=== PATIENT | female | born 1985 | race Caucasian/White ===

== ENCOUNTER 2017-07-20 17:12 | Emergency (ER) | payer OTHER ==
[2017-07-20 17:26] VITALS: BP 131/59; PULSE 90; TEMP 98.4; BMI 33.8
--- NOTE | 2017-07-20 18:11 | PDOC ---
History of Present Illness - General History Source: Patient Exam Limitations: No Limitations - History of Present Illness Initial Comments: 07/20/17 18:29 The patient is a 32-year-old female, , with no significant past medical history, who presents to the ED with lower abdominal pain today. The patient is unsure of her exact last menstrual period but she states that her last normal period was in March. The patient is now experiencing crampy abdominal pain and believes that she may be . Her next appointment with her BASIC ACOUSTIC ANALYST is on July 24. She denies taking any medications. She states that her last was normal. She denies any nausea, vomiting, or diarrhea. She denies any vaginal bleeding or fluid loss. She denies taking any medications at this time. <Rita Silva - Last Filed: 07/20/17 18:29> - General History Source: Patient Exam Limitations: No Limitations - History of Present Illness Travel History: No <Dianna Zambrano - Last Filed: 07/20/17 20:40> - General Chief Complaint: Pain, Acute Stated Complaint: VAGINAL PAIN , (12 WEEKS ) Past History <Rita Silva - Last Filed: 07/20/17 18:29> - Past Medical History Asthma: No Cancer: No Cardiac Disorders: No Diabetes: No HTN: No Seizures: No Thyroid Disease: No - Psycho/Social/Smoking Cessation Hx Anxiety: No Suicidal Ideation: No Smoking Status: No Smoking History: Never smoked Number of Cigarettes Smoked Daily: 0 Hx Alcohol Use: No Drug/Substance Use Hx: No Hx Substance Use Treatment: No <Dianna Zambrano - Last Filed: 07/20/17 20:40> - Past Medical History Allergies/Adverse Reactions: Allergies Allergy/AdvReac Type Severity Reaction Status Date / Time No Known Allergies Allergy Verified 07/20/17 17:22 Home Medications: Ambulatory Orders Nitrofurantoin Monohyd/M-Cryst [Macrobid -] 100 mg PO BID #14 capsule 07/20/17 Vit No.129/Iron/FA [ One Daily Tablet] 1 each PO DAILY #90 tablet 07/20/17 Review of Systems - Review of Systems Able to Perform ROS?: Yes Comments:: 07/20/17 18:30 GENERAL/CONSTITUTIONAL: No fever or chills. No weakness. HEAD, EYES, EARS, NOSE AND THROAT: No change in vision. No ear pain or discharge. No sore throat. CARDIOVASCULAR: No chest pain or shortness of breath. RESPIRATORY: No cough, wheezing, or hemoptysis. GASTROINTESTINAL: (+)Abdominal pain. No nausea, vomiting, diarrhea or constipation. GENITOURINARY: No dysuria, frequency, or change in urination. MUSCULOSKELETAL: No joint or muscle swelling or pain. No neck or back pain. SKIN: No rash NEUROLOGIC: No headache, vertigo, loss of consciousness, or change in strength/ sensation. ENDOCRINE: No increased thirst. No abnormal weight change. HEMATOLOGIC/LYMPHATIC: No anemia, easy bleeding, or history of blood clots. ALLERGIC/IMMUNOLOGIC: No hives or skin allergy. <Rita Silva - Last Filed: 07/20/17 18:29> *Physical Exam - Vital Signs Last Vital Signs Temp Pulse Resp BP Pulse Ox 98.4 F 90 19 131/59 100 07/20/17 17:22 07/20/17 17:22 07/20/17 17:22 07/20/17 17:22 07/20/17 17:22 - Physical Exam Comments: 07/20/17 18:30 GENERAL: Awake, alert, and fully oriented, in no acute distress HEAD: No signs of trauma EYES: PERRLA, EOMI, sclera anicteric, conjunctiva clear ENT: Auricles normal inspection, hearing grossly normal, nares patent, oropharynx clear without exudates. Moist mucosa NECK: Normal ROM, supple, no lymphadenopathy, JVD, or masses LUNGS: Breath sounds equal, clear to auscultation bilaterally. No wheezes, and no crackles HEART: Regular rate and rhythm, normal S1 and S2, no murmurs, rubs or gallops ABDOMEN: Soft, nontender, normoactive bowel sounds. No guarding, no rebound. No masses EXTREMITIES: Normal range of motion, no edema. No clubbing or cyanosis. No cords, erythema, or tenderness NEUROLOGICAL: Cranial nerves II through XII grossly intact. SKIN: Warm, Dry, normal turgor, no rashes or lesions noted <Rita Silva - Last Filed: 07/20/17 18:29> - Vital Signs Last Vital Signs Temp Pulse Resp BP Pulse Ox 98.4 F 90 19 131/59 100 07/20/17 17:22 07/20/17 17:22 07/20/17 17:22 07/20/17 17:22 07/20/17 17:22 <Dianna Zambrano - Last Filed: 07/20/17 20:40> ED Treatment Course - LABORATORY CBC & Chemistry Diagram: 07/20/17 18:00 07/20/17 18:00 - ADDITIONAL ORDERS Additional order review: 07/20/17 18:00 RBC 4.51 D MCV 82.1 MCHC 34.4 RDW 14.3 D MPV 8.1 D Neutrophils % 72.3 Lymphocytes % 19.8 D Monocytes % 6.2 Eosinophils % 1.2 D Basophils % 0.5 <Rita Silva - Last Filed: 07/20/17 18:29> - LABORATORY CBC & Chemistry Diagram: 07/20/17 18:00 07/20/17 18:00 <Dianna Zambrano - Last Filed: 07/20/17 20:40> Medical Decision Making - Medical Decision Making 07/20/17 18:13 32 yo currently 8 - 10 weeks unsure of exact LMP. last menstrual that was normal in march some time, here with lower abdominal cramping pain. no urinary complaints. no vaginal bleeding. no other complaints. has appt with OB/ HUMAN CAPITAL ANALYST at [facility] [place] on 24 of july . on exam abd soft NT. plan bedside us eval fetus , age estimate and well being check. r/o ectopic. labs ua. focused ED ultrasound Transabdominal OB, indication abd pain finding: uterus scanned in two planes. pole noted, heart rate 161 bpm , movement noted. Faison Rump measurement consistent with 11 weeks plus one day impression: Live 11 weeks 1 day, IUP normal FHR. <Dianna Zambrano - Last Filed: 07/20/17 20:40> *DC/Admit/Observation/Transfer - Attestations Scribe Attestion: 07/20/17 18:31 Documentation prepared by Rita Silva, acting as medical claims representative for Dianna Zambrano MD. <Rita Silva - Last Filed: 07/20/17 18:29> - Discharge Dispostion Admit: No <Dianna Zambrano - Last Filed: 07/20/17 20:40> Diagnosis at time of Disposition: - Prescriptions Prescriptions: Nitrofurantoin Monohyd/M-Cryst [Macrobid -] 100 mg PO BID #14 capsule Vit No.129/Iron/FA [ One Daily Tablet] 1 each PO DAILY #90 tablet - Patient Instructions Printed Discharge Instructions: Medications and , Managing Symptoms of , Urinary Tract Infection Additional Instructions: you should take a vitamin daily. follow up with the ob/gynecology clinic as scheduled. return for any problems or concerns. yo u have a mild urine infection. you should take macrobid antiobiotics 100 mg twice daily x 7 days. necesitas tome adilson vitamina con folate cada jalyn. adilson receta por las vitaminas esta en la farmacia. devolvere por neela de la vagina, doler o otras preocupadas. seguir con le oz en la clinica en junosto 29. tu Teines adilson infection en la orina. necesita un antiobiotico " macrobid" 100 mg dos veces cada jalyn por 7 aguayo. Print Language: VENEZUELAN
[2017-07-20 18:18] LABS: BASOPHIL 0.5 % (0-2.0); EOSINOPHIL 1.2 % (0-4.5); MCH 28.2 pg (25.7-33.7); MCHC 34.4 g/dl (32.0-36.0); MEAN CELL VOLUME 82.1 fl (80-96); MEAN PLT VOLUME 8.1 fl (7.5-11.1); NEUTROPHILS 72.3 % (42.8-82.8); PLATELET COUNT 251 K/MM3 (134-434); RDW 14.3 % (11.6-15.6); WHITE BLOOD COUNT 11.3 K/mm3 (4.0-10.0)
[2017-07-20 18:25] LABS: URINE APPEARANCE CLEAR; URINE BILIRUBIN NEGATIVE (NEGATIVE); URINE BLOOD NEGATIVE (NEGATIVE); URINE COLOR LTYELLOW; URINE GLUCOSE (UA) NEGATIVE (NEGATIVE); URINE KETONE NEGATIVE (NEGATIVE); URINE NITRITE NEGATIVE (NEGATIVE); URINE PROTEIN NEGATIVE (NEGATIVE); URINE UROBILINOGEN NEGATIVE mg/dL (0.2-1.0)
[2017-07-20 18:34] LABS: URINE LEUK ESTERASE 1+ (NEGATIVE)
[2017-07-20 18:44] LABS: ALBUMIN 3.8 g/dl (3.4-5.0); ANION GAP 11 (8-16); CALCIUM 8.9 mg/dL (8.5-10.1); CO2 24 mmol/L (21-32); CREATININE 0.6 mg/dL (0.55-1.02); GLUCOSE,RANDOM 91 mg/dL (74-106); SGOT/AST 15 U/L (15-37); SGPT/ALT 22 U/L (12-78)
[2017-07-20 18:46] LABS: ALK PHOS 72 U/L (45-117); BILIRUBIN,TOTAL 0.5 mg/dL (0.2-1.0)
[2017-07-20] MEDS ORDERED: NITROFURANTOIN MACROCRYSTAL 50 MG CAPSULE (FP) ONE (20:39)
[2017-07-20] MEDS ORDERED: NITROFURANTOIN MACROCRYSTAL 50 MG CAPSULE (FP) PO SCH (20:45)
== END 2017-07-20 20:51 | disposition home or self-care (01) ==
LOC: JER 17:12
DX: O26.891 Other specified pregnancy related conditions, first trimester (principal); R10.2 Pelvic and perineal pain; Z3A.11 11 weeks gestation of pregnancy
CPT/HCPCS: 36415; 80053; 81003; 81015; 84702; 85025; 86850; 86900; 86901; 87086; 99283-25

== ENCOUNTER 2017-08-27 23:30 | Emergency (ER) | payer OTHER ==
[2017-08-28 00:11] VITALS: BP 103/53; PULSE 80; TEMP 97.4; BMI 31.7
[2017-08-28] MEDS ORDERED: diphenhydrAMINE HCL 25 MG CAPSULE (FP) PO ONE ×2 (00:15→00:22)
--- NOTE | 2017-08-28 00:16 | PDOC ---
History of Present Illness - General Chief Complaint: Allergic Reaction Stated Complaint: RASH/20 WKS Time Seen by Provider: 08/27/17 23:57 History Source: Patient - History of Present Illness Initial Comments: 08/28/17 00:16 32 year old 20 week female with pruritic rash to body x 3 days. denies fever, NVD, abdominal pain, vaginal bleeding Past History - Past Medical History Allergies/Adverse Reactions: Allergies Allergy/AdvReac Type Severity Reaction Status Date / Time No Known Allergies Allergy Verified 08/28/17 00:10 Home Medications: Ambulatory Orders Nitrofurantoin Monohyd/M-Cryst [Macrobid -] 100 mg PO BID #14 capsule 07/20/17 Vit No.129/Iron/FA [ One Daily Tablet] 1 each PO DAILY #90 tablet 07/20/17 Asthma: No Cancer: No Cardiac Disorders: No Diabetes: No HTN: No Seizures: No Thyroid Disease: No - Reproductive History (#): 2 Para: 1 - Suicide/Smoking/Psychosocial Hx Smoking Status: No Smoking History: Never smoked Have you smoked in the past 12 months: No Number of Cigarettes Smoked Daily: 0 Information on smoking cessation initiated: No Hx Alcohol Use: No Drug/Substance Use Hx: No Hx Substance Use Treatment: No Review of Systems - Review of Systems Able to Perform ROS?: Yes Is the patient limited Greenlandic proficient: No Integumentary: Yes: Pruritus, Rash *Physical Exam - Vital Signs Last Vital Signs Temp Pulse Resp BP Pulse Ox 97.4 F L 80 14 103/53 99 08/28/17 00:10 08/28/17 00:10 08/28/17 00:10 08/28/17 00:10 08/28/17 00:10 - Physical Exam General Appearance: Yes: Appropriately Dressed Extremity: positive: Normal Capillary Refill Integumentary: positive: Petechiae, Rash, Other (petechial rash to b/l breast and erythema. excoriated areas to hand axilla, groin b/l lower extremities) Neurologic: positive: Fully Oriented, Alert, Normal Mood/Affect ED Treatment Course - LABORATORY CBC & Chemistry Diagram: 08/28/17 00:18 Medical Decision Making - Medical Decision Making Pruritic rash P: lfts wnl PTT/PT inr: wnl/ outpatient derm followup. benadryl prn *DC/Admit/Observation/Transfer Diagnosis at time of Disposition: Pruritic rash - Discharge Dispostion Disposition: HOME - Referrals Referrals: Beatriz Mays MD [Staff Physician] - - Patient Instructions Printed Discharge Instructions: Allergen Skin Testing Additional Instructions: take benadryl every 8 hours as needed for itch follow up with dermatology as soon as possible.
[2017-08-28 00:40] LABS: INR 1.04 (0.82-1.09); PROTHROMBIN TIME (PATIENT) 11.4 SEC (9.98-11.88)
[2017-08-28 00:43] LABS: ACTIVATED PTT 28.9 SECONDS (26.9-34.4)
[2017-08-28 00:48] LABS: ALBUMIN 3.1 g/dl (3.4-5.0); ANION GAP 10 (8-16); BILIRUBIN,TOTAL 0.2 mg/dL (0.2-1.0); CALCIUM 8.6 mg/dL (8.5-10.1); CO2 23 mmol/L (21-32); CREATININE 0.5 mg/dL (0.55-1.02); GLUCOSE,RANDOM 99 mg/dL (74-106); SGOT/AST 14 U/L (15-37); SGPT/ALT 23 U/L (12-78); TOT PROT 6.2 g/dl (6.4-8.2)
[2017-08-28 00:49] LABS: ALK PHOS 73 U/L (45-117)
== END 2017-08-28 02:05 | disposition home or self-care (01) ==
LOC: JER 23:30
DX: O26.892 Other specified pregnancy related conditions, second trimester (principal); R21 Rash and other nonspecific skin eruption; Z3A.20 20 weeks gestation of pregnancy
CPT/HCPCS: 36415; 80053; 85610; 85730; 99281-25

== ENCOUNTER 2018-01-10 11:40 | Inpatient (IN) | payer OTHER ==
[2018-01-10 12:59] LABS: BASO % 0.3 % (0-2.0); EOS % 0.7 % (0-4.5); HEMOGLOBIN 13.1 GM/dL (10.7-15.3); MCH 24.8 pg (25.7-33.7); MCHC 31.8 g/dl (32.0-36.0); MEAN CELL VOLUME 77.8 fl (80-96); MEAN PLT VOLUME 9.6 fl (7.5-11.1); MONO % 4.5 % (3.8-10.2); NEUT % 78.5 % (42.8-82.8); PLATELET COUNT 242 K/MM3 (134-434); RBC 5.28 M/mm3 (3.60-5.2); RDW 15.7 % (11.6-15.6)
[2018-01-10 13:16] LABS: INR 0.96 (0.82-1.09); PROTHROMBIN TIME (PATIENT) 10.8 SEC (9.98-11.88)
[2018-01-10 13:18] LABS: ACTIVATED PTT 29.4 SECONDS (26.9-34.4)
[2018-01-10 13:22] LABS: ANION GAP 11 (8-16); BLOOD UREA NITROGEN 11 mg/dL (7-18); CALCIUM 8.7 mg/dL (8.5-10.1); CHLORIDE 108 mmol/L (98-107); CO2 20 mmol/L (21-32); CREATININE 0.6 mg/dL (0.55-1.02); GLUCOSE,RANDOM 104 mg/dL (74-106); POTASSIUM 4.1 mmol/L (3.5-5.1); SODIUM 139 mmol/L (136-145)
[2018-01-10 13:24] VITALS: BMI 33.7
[2018-01-10] MEDS: LACTATED RINGERS SOLUTION 1,000 ML IV SCH ×2 (13:45→18:13)
--- NOTE | 2018-01-10 15:28 | HP ---
Past Medical History - Primary Care Physician PCP:: Lokesh Delarosa - Admission Chief Complaint: 37 week , GDM, rom, labor History of Present Illness: 32 yo f - Past Medical History ...: 2 ...Para: 1 ...Term: 1 ...: 0 ...Spon : 0 ...Induced : 0 ...Multiple Gestation: 0 ...LMP: 04/29/17 ... Weeks Gestation by Dates: 36.4 ...EDC by Dates: 02/03/18 ...EDC by Sono: 01/31/18 - Smoking History Smoking history: Never smoked Have you smoked in the past 12 months: No Aproximately how many cigarettes per day: 0 - Alcohol/Substance Use Hx Alcohol Use: No Home Medications - Allergies Allergies/Adverse Reactions: Allergies Allergy/AdvReac Type Severity Reaction Status Date / Time No Known Allergies Allergy Verified 01/10/18 12:18 - Home Medications Home Medications: Ambulatory Orders Glyburide/Metformin HCl [Glyburide-Metformin 2.5-500 mg] 2.5 each PO BID Physical Exam - Maternity Vital Signs: Vital Signs Temperature 98.9 F 01/10/18 14:00 Pulse Rate 76 01/10/18 14:00 Respiratory Rate 18 01/10/18 14:00 Blood Pressure 105/57 01/10/18 14:00 O2 Sat by Pulse Oximetry (%) - Labs Lab Results: CBC, BMP 01/10/18 12:15 01/10/18 12:15
--- NOTE | 2018-01-10 22:19 | PN ---
Progress Note (short form) - Note Progress Note: cx 5 cm 80, vx -1 mr, fhr cat 1, irregular contraction, advised pitocin stimulation
[2018-01-10] MEDS ORDERED: OXYTOCIN 15 UNITS/ LR 250 ML 15 UNIT/250 ML INFUS.BAG IVPB SCH (22:30)
[2018-01-10] MEDS ORDERED: OXYTOCIN 30 UNITS in 0.9% NS 30 UNIT/500 ML INFUS.BAG IVPB SCH (22:30)
[2018-01-10] MEDS ORDERED: OXYTOCIN 20 UNITS in 0.9% NS 20 UNIT/1,000 ML INFUS.BAG IV ONE (22:37)
[2018-01-11] MEDS: LACTATED RINGERS SOLUTION 1,000 ML IV SCH ×2 (03:50→17:07)
[2018-01-11] MEDS ORDERED: AMPICILLIN - 2 GM in SODIUM CHLORIDE 100 ML IVPB ONE ×2 (04:30→05:30)
[2018-01-11] MEDS ORDERED: AMPICILLIN SODIUM 2 GM VIAL ONE (05:21)
[2018-01-11] MEDS ORDERED: BUTORPHANOL TARTRATE 1 MG/ML VIAL IVPUSH ONE (05:40)
[2018-01-11] MEDS ORDERED: PROMETHAZINE HCL 25 MG/1 ML VIAL IVPUSH ONE (05:40)
[2018-01-11] MEDS ORDERED: PROMETHAZINE HCL 25 MG/1 ML VIAL ONE (05:42)
[2018-01-11] MEDS ORDERED: BUTORPHANOL TARTRATE 1 MG/ML VIAL ONE ×2 (05:42)
[2018-01-11] MEDS ORDERED: LIDOCAINE HCL 1% PRESERVATIVE FREE - 30ML VIAL ONE (06:23)
[2018-01-11] MEDS ORDERED: OXYTOCIN 20 UNITS in 0.9% NS 20 UNIT/1,000 ML INFUS.BAG IV ONE ×2 (06:23→07:04)
[2018-01-11] MEDS: D5W-LR W/ 20 UNITS OXYTOCIN 20 UNIT/1,000 ML INFUS.BAG IV SCH ×2 (06:35→17:07)
[2018-01-11] MEDS ORDERED: BISACODYL 10 MG SUPP.RECT RC PRN (06:41)
[2018-01-11] MEDS ORDERED: WITCH HAZEL 50% (TUCKS) 40 PAD/JAR PAD TP PRN (06:41)
[2018-01-11] MEDS ORDERED: METHYLERGONOVINE MALEATE 0.2 MG/1 ML AMP IM PRN (06:41)
[2018-01-11] MEDS ORDERED: BENZOCAINE 28 GM HEMORRHOIDAL OINTMENT TP PRN (06:41)
[2018-01-11] MEDS ORDERED: BENZOCAINE 20% 57 GM BOTTLE TP PRN (06:41)
[2018-01-11] MEDS: FERROUS SO4 325 MG TABLET (FP) PO SCH ×2 (09:00→17:07)
[2018-01-11] MEDS ORDERED: OXYTOCIN 20 UNITS in 0.9% NS 20 UNIT/1,000 ML INFUS.BAG IV SCH (09:00)
[2018-01-11] MEDS ORDERED: IBUPROFEN 600 MG TABLET (FP) PO ONE (09:26)
[2018-01-11] MEDS: IBUPROFEN 600 MG TABLET (FP) PO PRN ×2 (09:30→23:48)
[2018-01-11] MEDS ORDERED: AMPICILLIN - 1 GM in SODIUM CHLORIDE 100 ML IVPB SCH (09:30)
[2018-01-11] MEDS: PRENATAL VITAMINS W/ FOLIC ACID TABLET (FP) PO SCH (09:40)
[2018-01-11] MEDS: ACETAMINOPHEN 325 MG TABLET (FP) PO PRN (23:49)
[2018-01-12 07:10] LABS: BASO % 0.4 % (0-2.0); EOS % 1.2 % (0-4.5); HEMATOCRIT 34.5 % (32.4-45.2); HEMOGLOBIN 11.1 GM/dL (10.7-15.3); LYMPH % 24.4 % (8-40); MCH 25.6 pg (25.7-33.7); MCHC 32.2 g/dl (32.0-36.0); MEAN CELL VOLUME 79.5 fl (80-96); MEAN PLT VOLUME 9.3 fl (7.5-11.1); MONO % 6.6 % (3.8-10.2); NEUT % 67.4 % (42.8-82.8); PLATELET COUNT 215 K/MM3 (134-434); RBC 4.34 M/mm3 (3.60-5.2); WHITE BLOOD COUNT 12.5 K/mm3 (4.0-10.0)
--- NOTE | 2018-01-12 07:17 | PN ---
Post Progress Note - Subjective Subjective: 32 yo Para 2 status post vaginal delivery, seen and evaluated. Doing well. Post Day: 1 Type of Delivery: Vital Signs: Vital Signs Temperature 97.6 F 01/12/18 05:35 Pulse Rate 68 01/12/18 05:35 Respiratory Rate 20 01/12/18 05:35 Blood Pressure 106/71 01/12/18 05:35 O2 Sat by Pulse Oximetry (%) Breast Exam: Yes: Soft Uterus: Yes: Fundus Firm Abdomen/GI: Yes: Abdomen soft, Tolerating PO Lochia: Yes: Rubra Lochia, amount: Small Extremities: Yes: Calves non-tender Activity: Ambulating - Labs Labs: CBC WBC 12.0 K/mm3 (4.0-10.0) H 01/10/18 12:15 RBC 5.28 M/mm3 (3.60-5.2) H 01/10/18 12:15 Hgb 13.1 GM/dL (10.7-15.3) 01/10/18 12:15 Hct 41.0 % (32.4-45.2) 01/10/18 12:15 MCV 77.8 fl (80-96) L 01/10/18 12:15 MCH 24.8 pg (25.7-33.7) L 01/10/18 12:15 MCHC 31.8 g/dl (32.0-36.0) L 01/10/18 12:15 RDW 15.7 % (11.6-15.6) H 01/10/18 12:15 Plt Count 242 K/MM3 (134-434) 01/10/18 12:15 MPV 9.6 fl (7.5-11.1) D 01/10/18 12:15 Neutrophils % 78.5 % (42.8-82.8) 01/10/18 12:15 Lymphocytes % 16.0 % (8-40) 01/10/18 12:15 Monocytes % 4.5 % (3.8-10.2) 01/10/18 12:15 Eosinophils % 0.7 % (0-4.5) 01/10/18 12:15 Basophils % 0.3 % (0-2.0) 01/10/18 12:15 Assessment/Plan Status post vaginal delivery Stable Continue routine care
[2018-01-12] MEDS: FERROUS SO4 325 MG TABLET (FP) PO SCH ×2 (08:19→17:12)
[2018-01-12] MEDS: PRENATAL VITAMINS W/ FOLIC ACID TABLET (FP) PO SCH (09:52)
[2018-01-12] MEDS: ACETAMINOPHEN 325 MG TABLET (FP) PO PRN (15:18)
[2018-01-12] MEDS: IBUPROFEN 600 MG TABLET (FP) PO PRN (15:19)
[2018-01-12] MEDS ORDERED: SENNOSIDES/DOCUSATE COMBO (SENNA PLUS) TABLET (UD) PO PRN (22:00)
[2018-01-13] MEDS: FERROUS SO4 325 MG TABLET (FP) PO SCH (07:58)
[2018-01-13] MEDS: IBUPROFEN 600 MG TABLET (FP) PO PRN (07:58)
[2018-01-13 08:42] VITALS: BP 118/55; PULSE 83; TEMP 98.9
--- NOTE | 2018-01-13 09:05 | DS ---
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 Vital Signs: Vital Signs Temperature 98.9 F 01/13/18 08:40 Pulse Rate 83 01/13/18 08:40 Respiratory Rate 20 01/13/18 08:40 Blood Pressure 118/55 01/13/18 08:40 O2 Sat by Pulse Oximetry (%) Constitutional: Yes: Well Nourished Eyes: Yes: Conjunctiva Clear HENT: Yes: Atraumatic Neck: Yes: Supple Cardiovascular: Yes: Regular Rate and Rhythm Respiratory: Yes: Regular Gastrointestinal: Yes: Normal Bowel Sounds Pelvis: Yes: WNL External Genitalia: Yes: Normal Vaginal Exam: Yes: Normal Uterus: Yes: Firm ....Post : Yes: Uterus firm, Moderate lochia serosa Breast(s): Yes: WNL Musculoskeletal: Yes: WNL Extremities: Yes: WNL Neurological: Yes: Alert, Oriented ...Motor Strength: WNL Psychiatric: Yes: Alert, Oriented Labs: CBC, BMP 01/12/18 06:07 01/10/18 12:15 Delivery - Delivery Type of Anesthesia: None Episiotomy/Laceration: None EBL (cc): 400 Delivery, Single - Stages of Labor Date 1st Stage Initiatied: 01/10/18 Time 1st Stage Initiated: 09:00 Date 2nd Stage Initiated: 01/11/18 Time 2nd Stage Initiated: 06:25 Date of Delivery: 01/11/18 Time of Delivery: 06:31 Time Placenta Delivered: 06:35 - 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 for appointment. [phone] Disposition: HOME - Home Medications Comprehensive Discharge Medication List: Ambulatory Orders Glyburide/Metformin HCl [Glyburide-Metformin 2.5-500 mg] 2.5 each PO BID
[2018-01-13] MEDS: PRENATAL VITAMINS W/ FOLIC ACID TABLET (FP) PO SCH (09:27)
== END 2018-01-13 12:50 | disposition home or self-care (01) | DRG 560 ==
LOC: JLDR 11:40 → J3W 01-11 15:12
PROVIDERS: ADMIT Obstetrics & Gynecology; ATTEND Obstetrics & Gynecology
PROC: 10E0XZZ Delivery of Products of Conception, External Approach (ICD-10-PCS; principal; 2018-01-11)
DX: O24.429 Gestational diabetes mellitus in childbirth, unspecified control (principal); Z3A.37 37 weeks gestation of pregnancy; Z37.0 Single live birth
CPT/HCPCS: 36415; 59409; 80048; 82962; 85025; 85610; 85730; 86593; 86850; 86900; 86901

== ENCOUNTER 2020-07-27 00:51 | Inpatient (IN) | payer OTHER ==
[2020-07-27 01:23] VITALS: BMI 31.3
--- NOTE | 2020-07-27 01:24 | PDOC ---
History of Present Illness - General Chief Complaint: Pain, Acute Stated Complaint: ABD PAIN/4MO Time Seen by Provider: 07/27/20 01:19 History Source: Patient, Old Records Exam Limitations: No Limitations - History of Present Illness Initial Comments: 07/27/20 01:22 Yolanda Morales is a Pashto-speaking @15 weeks presenting with acute onset abdominal pain. Patient reports starting at 1PM yesterday has had acute onset RUQ pain that has slowly gotten worse over time. Denies fever/chills/nausea/vomiting, denies vaginal bleeding or discharge, no urinary symptoms, no diarrhea. No sick contacts at home. No chest pain, SOB, cough, TRIANA, dizziness. No prior PSH, has had two . Currently being followed by Dr. Weber for this , had a OGTT 4 days ago but does not know the results. No meds taken. No allergies. Here for evaluation of her abdominal pain. Past History - Medical History Allergies/Adverse Reactions: Allergies Allergy/AdvReac Type Severity Reaction Status Date / Time No Known Allergies Allergy Verified 07/27/20 01:23 Home Medications: Ambulatory Orders NK [No Known Home Medication] 07/27/20 Asthma: No Cancer: No Cardiac Disorders: No Diabetes: Yes (gestational diabetic both pregnancies) HTN: No Seizures: No Thyroid Disease: No - Reproductive History (#): 2 Para: 1 - Psycho-Social/Smoking History Smoking Status: No Smoking History: Never smoked Have you smoked in the past 12 months: No Number of Cigarettes Smoked Daily: 0 Review of Systems - Review of Systems Able to Perform ROS?: Yes Constitutional: No: Chills, Fever HEENTM: No: Symptoms Reported Respiratory: No: Symptoms reported Cardiac (ROS): No: Symptoms Reported ABD/GI: Yes: Abdominal cramping. No: Constipated, Diarrhea, Difficulty Swallowing, Nausea, Poor Appetite, Poor Fluid Intake, Vomiting : No: Burning, Dysuria, Discharge, Frequency, Flank Pain, Hematuria, Incont inence Musculoskeletal: No: Symptoms Reported Integumentary: No: Symptoms Reported Endocrine: No: Symptoms Reported Hematologic/Lymphatic: No: Symptoms Reported All Other Systems: Reviewed and Negative *Physical Exam - Physical Exam General Appearance: Yes: Nourished, Appropriately Dressed, Mild Distress, Other (sitting up in bed in NAD, clutching RUQ) HEENT: positive: EOMI, CAMRYN, Pharynx Normal, Hearing Grossly Normal. negative: Scleral Icterus (R), Scleral Icterus (L), Pharyngeal Erythema, Tonsillar Exudate, Tonsillar Erythema Neck: positive: Normal Thyroid, Supple. negative: Tender, Rigid, Lymphadenopathy (R), Lymphadenopathy (L), Tender lateral, Tender midline Respiratory/Chest: positive: Lungs Clear, Normal Breath Sounds. negative: Chest Tender, Respiratory Distress, Accessory Muscle Use, Crackles, Rales, Rhonchi, Stridor, Wheezing Cardiovascular: positive: Regular Rhythm, Regular Rate. negative: Murmur Gastrointestinal/Abdominal: positive: Normal Bowel Sounds, Tender (RUQ, + Hernandez), Soft, Other (gravid abdomen, unable to palpate uterine fundus consistent with reported age). negative: Organomegaly, Guarding, Rebound, Hernia Musculoskeletal: positive: Normal Inspection. negative: CVA Tenderness, Vertebral Tenderness Extremity: positive: Normal Capillary Refill, Normal Inspection, Normal Range of Motion, Pelvis Stable. negative: Tender, Pedal Edema, Swelling, Calf Tenderness Integumentary: positive: Normal Color, Dry, Warm Neurologic: positive: Fully Oriented, Alert, Normal Mood/Affect, Normal Response ED Treatment Course - LABORATORY CBC & Chemistry Diagram: 07/27/20 02:48 07/27/20 02:48 - RADIOLOGY Radiograph Interpretation: 07/27/20 03:04 Cem Rashid MD wrote on Jul 27, 2020 at 01:53 AM: THIS IS A PRELIMINARY REPORT DATE OF SERVICE: 2020-07-27 01:24:17 EXAM: Ultrasound obstetric and pelvic duplex FINDINGS: Ultrasound :Uterus is anteverted and measures 16.7centimeters in length. There is a single live IUP with estimated gestational age of 14weeks and 5days. There is a normal heart rate of 146beats per minute. There is no subchorionic bleed. The right ovary measures 2.2centimeters in length and appears normal. The left ovary is not visualized. There is no significant free fluid. Pelvic duplex: There is normal arterial and venous flow in the right ovary. IMPRESSION: Estimated age 14 weeks 5 days without definite abnormalities. THIS IS A PRELIMINARY REPORT DATE OF SERVICE: 2020-07-27 01:13:56 EXAM: ABDOMEN US -LIMITED, right upper quadrant and limited abdominal duplex FINDINGS: Right upper quadrant ultrasound:The liver is normal, without mass or biliary duct dilation. The gallbladder is distended, contains stones and demonstrates a sonographic Hernandez sign. No wall thickening or pericholecystic fluid.. The CBD is not dilated and measures4 millimeters in diameter. Right kidney measures 10.6centimeters in length and is unremarkable. The visualized aorta and IVC are normal. Pancreas is partially obscured, but appears normal. Abdominal duplex: There is normal hepatopedal flow in the main portal vein. IMPRESSION: Moderate suspicion for cholecystitis without biliary duct dilation Medical Decision Making - Medical Decision Making 07/27/20 01:23 Patient is @15 weeks presenting with acute onset RUQ abdominal pain, now having N/V in the ED. Has +Hernandez sign on exam, formal US reveals healthy 14 week fetus with FHR 146, but has enlarged GB with several large stones noted concerning for cholecystitis. Getting pre-op labs CBC/CMP/T&S/Coags/UA/UC, ECG, and giving Ofirmev for pain control and Zosyn for intra-abdominal infection. Labs notable for: - WBC 12.1 - UA 2+ LE and 2381 bacteria consistent with UTI, already giving Zosyn for cholecystitis - glucose 151 ECG notable for NSR with HR 76, QTc 420, no LENI/D or TWI. 07/27/20 03:53 Patient requires admission to Med/Surg for IV ABx and further surgical planning. No PMD other than Dr. Barreto, will admit to [facility]. Vomited once in ED, NBNB, giving Zofran IV for nausea. 07/27/20 05:38 Admitting team accepts under Dr. Betancourt, will be evaluated for cholecystitis in the morning. Patient no longer vomiting, resting comfortably in bed. Discharge - Discharge Information Problems reviewed: Yes Clinical Impression/Diagnosis: Abdominal pain affecting , Cholecystitis Condition: Fair - Admission Yes - Follow up/Referral - Patient Discharge Instructions - Post Discharge Activity
[2020-07-27] MEDS ORDERED: ACETAMINOPHEN 1000 MG/100 ML VIAL (NON FORMULARY) IVPB ONE (02:34)
[2020-07-27] MEDS ORDERED: SODIUM CHLORIDE 0.9% 500 ML INFUS.BAG IV ONE (02:34)
[2020-07-27 02:37] LABS: EPI CELLS 29 /uL (0-25.1); HYALINE CASTS 0 /uL (0-3.1); PH,URINE 6.5 (5.0-8.0); URINE APPEARANCE CLOUDY; URINE BACTERIA 2381 /uL (0-1359); URINE BILIRUBIN NEGATIVE (NEGATIVE); URINE COLOR YELLOW; URINE GLUCOSE (UA) NEGATIVE (NEGATIVE); URINE KETONE NEGATIVE (NEGATIVE); URINE LEUK ESTERASE 2+ (NEGATIVE); URINE NITRITE NEGATIVE (NEGATIVE); URINE PROTEIN NEGATIVE (NEGATIVE); URINE RBC 38 /uL (0-23.9); URINE UROBILINOGEN 0.2 mg/dL (0.2-1.0); URINE WBC 189 /uL (0-25.8)
[2020-07-27] MEDS ORDERED: ONDANSETRON 4 MG/2 ML VIAL IVPUSH ONE (02:38)
[2020-07-27] MEDS ORDERED: ACETAMINOPHEN INJECTION 100 ML IVPB ONE (02:49)
[2020-07-27 03:00] LABS: BASO % 0.9 % (0-2.0); EOS % 1.9 % (0-4.5); HEMATOCRIT 37.6 % (32.4-45.2); HEMOGLOBIN 12.8 GM/dL (10.7-15.3); LYMPH % 20.8 % (8-40); MCH 28.2 pg (25.7-33.7); MCHC 34.1 g/dl (32.0-36.0); MEAN CELL VOLUME 82.8 fl (80-96); MEAN PLT VOLUME 8.4 fl (7.5-11.1); MONO % 5.9 % (3.8-10.2); NEUT % 70.5 % (42.8-82.8); PLATELET COUNT 247 K/MM3 (134-434); RBC 4.54 M/mm3 (3.60-5.2); RDW 14.3 % (11.6-15.6); WHITE BLOOD COUNT 12.1 K/mm3 (4.0-10.0)
[2020-07-27] MEDS ORDERED: PIPERACILLIN/TAZOB 3.375 GM 3.375 GM in DEXTROSE 5%-WATER - 50 ML IVPB ONE (03:02)
--- NOTE | 2020-07-27 03:04 | PDOC ---
Documentation entered by Sravani Vazquez SCRIBE, acting as scribe for Mercy Hoover MD. Mercy Hoover MD: This documentation has been prepared by the scribe, Sravani Jewell SCRIBE, under my direction and personally reviewed by me in its entirety. I confirm that the documentation accurately reflects all work, treatment, procedures, and medical decision making performed by me. Attending Attestation - Resident Resident Name: KeishaFélix - ED Attending Attestation I have performed the following: I have examined & evaluated the patient, The case was reviewed & discussed with the resident, I agree w/resident's findings & plan, Exceptions are as noted - HPI HPI: 07/27/20 01:40 The patient is a 35 year old female , 15 weeks who presents to the ED for evaluation of abdominal pain. - Physicial Exam PE: 07/27/20 03:02 General: uncomfortable appearing Abdomen: soft, +RUQ ttp, +deluca's, no rebound no guarding - Medical Decision Making 07/27/20 03:03 35 yo F with RUQ abdominal pain, concerning for acute choley. Plan: -labs -urine -RUQ sono -Pelvis sono -pain control as needed -reassess This clinical encounter is taking place during a federal and state health care emergency attributable to the novel Denson Virus pandemic. The Field Contact Person of the Department of Health and Human Services has declared, pursuant to the Public Health Service Act 319F-3 (42 U.S.C. 247d-6d), that a covered persons activities related to medical countermeasures against COVID-19 will be immune from liability under Federal and State law. 07/27/20 06:45 Sono with findings concerning for acute choley. will consult surgery and give zosyn. Patient to be admitted. Discharge - Discharge Information Problems reviewed: Yes Clinical Impression/Diagnosis: Abdominal pain affecting , Cholecystitis Condition: Fair - Follow up/Referral - Patient Discharge Instructions - Post Discharge Activity
[2020-07-27 03:08] LABS: INR 0.94 (0.83-1.09); PROTHROMBIN TIME (PATIENT) 11.1 SEC (9.7-13.0)
[2020-07-27] MEDS ORDERED: PIPERACILLIN/TAZOB 3.375 GM 3.375 GM/50 ML BAG IVPB ONE (03:08)
[2020-07-27 03:11] LABS: ACTIVATED PTT 29.7 SECONDS (25.2-36.5)
[2020-07-27 03:32] LABS: ALBUMIN 3.6 g/dl (3.4-5.0); BILIRUBIN,TOTAL 0.2 mg/dL (0.2-1); BLOOD UREA NITROGEN 6.6 mg/dL (7-18); CALCIUM 9.3 mg/dL (8.5-10.1); CREATININE 0.5 mg/dL (0.55-1.3); POTASSIUM 4.3 mmol/L (3.5-5.1); TOT PROT 7.4 g/dl (6.4-8.2)
--- NOTE | 2020-07-27 04:40 | PN ---
Teaching Attending Note Name of Resident: Gino Phillips ATTENDING PHYSICIAN STATEMENT I saw and evaluated the patient. I reviewed the resident's note and discussed the case with the resident. I agree with the resident's findings and plan as documented. SUBJECTIVE: Patient is a 35 year old woman with a PMH of Gestational diabetes, who is 1 5 weeks presenting with acute onset RUQ abdominal pain for 1 day. Patient reports the pain that has slowly gotten worse over time. Denies fever, chills, nausea or vomiting. Denies vaginal bleeding, abnormal discharge, urinary symptoms or diarrhea. No sick contacts at home. No chest pain, SOB, cough, headache or dizziness. Currently being followed by Dr. Weber for this - had a OGTT 4 days ago but does not know the results. Did not take any medications for the pain. Denies alcohol, tobacco or illicit drug use. No sick contacts or recent travels. Family history is unremarkable. OBJECTIVE: Alert Vital Signs Period Temp Pulse Resp BP Sys/Olson Pulse Ox Last 24 Hr 98.8 F 83 16 118/64 99 HEENT: No Jaundice, eye redness or discharge, PERRLA, EOMI. Normocephalic, atraumatic. External ears are normal and hearing is grossly intact. No nasal discharge. Neck: Supple, nontender. No palpable adenopathy or thyromegaly. No JVD Chest: Good effort. Clear to auscultation and percussion. Heart: Regular. No S3, rub or murmur Abdomen: Not distended, soft, Gravid uterus; RUQ tenderness and no HSM. No rebound or guarding. Normal bowel sounds. Ext: Peripheral pulses intact. No leg edema. Skin: Warm and dry. No petechiae, rash or ecchymosis. Neuro: Alert. Oriented x3. CN 2-12 grossly intact. Sensation grossly intact in all four extremities and DTR are symmetric. Psych: Appropriate mood and affect. Good insight. Home Medications Medication Instructions Recorded Glyburide/Metformin HCl 2.5 each PO BID 01/10/18 [Glyburide-Metformin 2.5-500 mg] Abnormal Lab Results 07/27/20 07/27/20 07/27/20 02:00 02:48 02:48 WBC 12.1 H Absolute Neuts (auto) 8.5 H BUN 6.6 L Creatinine 0.5 L Random Glucose 151 H AST 13 L Ur Specific [place] 1.008 L Ur Leukocyte Esterase 2+ H Current Medications Generic Name Dose Route Start Last Admin Trade Name Freq PRN Reason Stop Dose Admin Insulin Aspart 1 vial 07/27/20 07:00 Novolog Vial Sliding Scale - SQ ACHS [facility] Protocol ASSESSMENT AND PLAN: 1. Cholecystitis/15 weeks /UTI - ABDOMEN Ultrasound - LIMITED, right upper quadrant and limited abdominal duplex. FINDINGS: Right upper quadrant ultrasound:The liver is normal, without mass or biliary duct dilation. The gallbladder is distended, contains stones and demonstrates a sonographic Hernandez sign. No wall thickening or pericholecystic fluid.. The CBD is not dilated and measures4 millimeters in diameter. Right kidney measures 10.6centimeters in length and is unremarkable. The visualized aorta and IVC are normal. Pancreas is partially obscured, but appears normal. Abdominal duplex: There is normal hepatopedal flow in the main portal vein. IMPRESSION: Moderate suspicion for cholecystitis without biliary duct dilation. Ultrasound obstetric and pelvic duplex. FINDINGS: Ultrasound :Uterus is anteverted and measures 16.7centimeters in length. There is a single live IUP with estimated gestational age of 14weeks and 5days. There is a normal heart rate of 146beats per minute. There is no subchorionic bleed. The right ovary measures 2.2 centimeters in length and appears normal. The left ovary is not visualized. There is no significant free fluid. Pelvic duplex: There is normal arterial and venous flow in the right ovary. IMPRESSION: Estimated age 14 weeks 5 days without definite abnormalities. Viral testing for COVID-19 ordered and patient placed on airborne, droplet and contact isolation. ER staff prescribed Tylenol, Zofran, IV Zosyn and IV NS for the patient. Will switch to IV Ceftriaxone and IV Flagyl after consultation with [facility]cher and ID. EKG shows NSR at 76/minute and QTc [address]-T wave changes. Initial troponin is negative. Will consult [facility]cher, Surgery and ID. 2. Gestational diabetes - Get result of recent OGTT. For now, we will hold the home diabetes drugs and implement sliding scale insulin regimen. Provide comprehensive diabetes care with patient teaching and counseling about the importance of adherence to prescribed diabetes regimen, euglycemia, eye care and foot care. 3. DVT prophylaxis - Heparin 5000u sq tid. 4. Advance directives - Full code
--- NOTE | 2020-07-27 06:01 | HP ---
CHIEF COMPLAINT: Right upper quadrant abdominal pain since yesterday at 1pm PCP: None (Dr. Delarosa is her ObGyn) HISTORY OF PRESENT ILLNESS: 35 year old female patient with past medical history that includes 2 Normal Spontaneous Vaginal Deliveries, who presented to the emergency room with severe right upper quadrant abdominal pain since 1 pm yesterday. The pain began after eating steak that contained a lot of fat. The patient denies ever having these symptoms in the past. She says that she hasn't had steak in a long time. In the emergency room, the patient vomited one time, which was nonbloody, yellow vomit. The patient reports feeling immediate relief of pain after vomiting, with reduction of her pain down to 0/10 intensity. She denies feeling nauseous anymore. Hernandez's sign was negative on physical exam. ER course was notable for: (1) Zosyn 3.375, Zofran, Ofirmev, 1L Normal Saline (2) RUQ U/S and U/S Obstetric and Pelvis Duplex (3) Recent Travel: PAST MEDICAL HISTORY: Gestational diabetes previously in both pregnancies PAST SURGICAL HISTORY: , 2 Normal Spontaneous Vaginal Deliveries Social History: Smoking: Denies Alcohol: Denies Drugs: Denies Allergies No Known Allergies Allergy (Verified 07/27/20 01:23) HOME MEDICATIONS: Home Medications Medication Instructions Recorded NK [No Known Home Medication] 07/27/20 REVIEW OF SYSTEMS CONSTITUTIONAL: Absent: no fever CARDIOVASCULAR: Absent: no chest pain RESPIRATORY: Absent: no cough, no shortness of breath GASTROINTESTINAL: Absent: no abdominal pain, no nausea, no vomiting, no diarrhea, no constipation GENITOURINARY: Absent: no dysuria NEUROLOGIC: Absent: no headache, no dizziness OBGYN: Absent: no vaginal bleeding PHYSICAL EXAMINATION Vital Signs - 24 hr 07/27/20 01:19 Temperature 98.8 F Pulse Rate 83 Respiratory 16 Rate Blood Pressure 118/64 O2 Sat by Pulse 99 Oximetry (%) GENERAL: Awake, alert, and fully oriented, in no acute distress. HEAD: Normal with no signs of trauma. EYES: Pupils equal, round and reactive to light, extraocular movements intact. No lid lag. EARS, NOSE, THROAT: Ears normal, nares patent, oropharynx clear without exudates. Moist mucous membranes. NECK: Normal range of motion, supple without lymphadenopathy, JVD, or masses. LUNGS: Breath sounds equal, clear to auscultation bilaterally. No wheezes, and no crackles. No accessory muscle use. HEART: Regular rate and rhythm, normal S1 and S2 without murmur, rub or gallop. ABDOMEN: Soft, nontender, not distended, normoactive bowel sounds, no guarding, no rebound, no masses. Negative Hernandez's sign. MUSCULOSKELETAL: Normal range of motion at all joints. No bony deformities or tenderness. UPPER EXTREMITIES: 2+ pulses, warm, well-perfused. No cyanosis. No clubbing. No peripheral edema. LOWER EXTREMITIES: 2+ pulses, warm, well-perfused. No calf tenderness. No peripheral edema. NEUROLOGICAL: Normal speech. PSYCHIATRIC: Cooperative. Good eye contact. Appropriate mood and affect. SKIN: Warm, dry, normal turgor, no rashes or lesions noted, normal capillary refill. Laboratory Results - last 24 hr 07/27/20 07/27/20 07/27/20 02:00 02:48 02:48 WBC 12.1 H RBC 4.54 Hgb 12.8 Hct 37.6 MCV 82.8 MCH 28.2 D MCHC 34.1 RDW 14.3 D Plt Count 247 MPV 8.4 Absolute Neuts (auto) 8.5 H Neutrophils % 70.5 Lymphocytes % 20.8 Monocytes % 5.9 Eosinophils % 1.9 Basophils % 0.9 Nucleated RBC % 0 PT with INR 11.10 INR 0.94 PTT (Actin FS) 29.7 Sodium Potassium Chloride Carbon Dioxide Anion Gap BUN Creatinine Est GFR (CKD-EPI)AfAm Est GFR (CKD-EPI)NonAf Random Glucose Calcium Total Bilirubin AST ALT Alkaline Phosphatase Total Protein Albumin Lipase Urine Color Yellow Urine Appearance Cloudy Urine pH 6.5 Ur Specific [place] 1.008 L Urine Protein Negative Urine Glucose (UA) Negative Urine Ketones Negative Urine Blood Negative Urine Nitrite Negative Urine Bilirubin Negative Urine Urobilinogen 0.2 Ur Leukocyte Esterase 2+ H Urine WBC (Auto) 189 Urine RBC (Auto) 38 Urine Casts (Auto) 0 U Epithel Cells (Auto) 29 Urine Bacteria (Auto) 2381 Blood Type Antibody Screen 07/27/20 07/27/20 02:48 02:48 WBC RBC Hgb Hct MCV MCH MCHC RDW Plt Count MPV Absolute Neuts (auto) Neutrophils % Lymphocytes % Monocytes % Eosinophils % Basophils % Nucleated RBC % PT with INR INR PTT (Actin FS) Sodium 137 Potassium 4.3 Chloride 106 Carbon Dioxide 23 Anion Gap 8 BUN 6.6 L Creatinine 0.5 L Est GFR (CKD-EPI)AfAm 143.30 Est GFR (CKD-EPI)NonAf 123.64 Random Glucose 151 H Calcium 9.3 Total Bilirubin 0.2 AST 13 L ALT 26 Alkaline Phosphatase 81 Total Protein 7.4 Albumin 3.6 Lipase 103 Urine Color Urine Appearance Urine pH Ur Specific [place] Urine Protein Urine Glucose (UA) Urine Ketones Urine Blood Urine Nitrite Urine Bilirubin Urine Urobilinogen Ur Leukocyte Esterase Urine WBC (Auto) Urine RBC (Auto) Urine Casts (Auto) U Epithel Cells (Auto) Urine Bacteria (Auto) Blood Type O POSITIVE Antibody Screen Negative ASSESSMENT/PLAN: 35 year old female patient with past medical history that includes 2 Normal Spontaneous Vaginal Deliveries, who presented to the emergency room with severe right upper quadrant abdominal pain since 1 pm yesterday. 1. Cholecystitis - WBC count 12.1 - U/S showed 2 stones measuring 1.63cm and 1.37cm with positive sonographic Hernandez sign - Pain and nausea resolved after the patient vomited - Consult Surgery, ID, and ObGyn - Rocephin and Flagyl only after consulting ID (if ID decides to recommend antibiotics) 2. History of Gestational Diabetes - Glucose 151 - BGMs - Novolog Sliding Scale # FEN - Normal Saline. Monitor Electrolytes. DVT PPx - Heparin SQ TID Family Medical History Family History: Denies Visit type - Emergency Visit Emergency Visit: Yes ED Registration Date: 07/27/20 Care time: The patient presented to the Emergency Department on the above date and was hospitalized for further evaluation of their emergent condition. - New Patient This patient is new to me today: Yes Date on this admission: 07/27/20 - Critical Care Critical Care patient: No ATTENDING PHYSICIAN STATEMENT I saw and evaluated the patient. I reviewed the resident's note and discussed the case with the resident. I agree with the resident's findings and plan as documented. SUBJECTIVE: OBJECTIVE: ASSESSMENT AND PLAN:
[2020-07-27] MEDS ORDERED: INSULIN SLIDING SCALE (NOVOLOG) 1 VIAL SQ SCH (07:00)
[2020-07-27] MEDS: INSULIN SLIDING SCALE (NOVOLOG) 1 VIAL SQ SCH ×2 (07:56→11:53)
--- NOTE | 2020-07-27 10:36 | EKG ---
Test Reason : Blood Pressure : / mmHG Vent. Rate : 076 BPM Atrial Rate : 076 BPM P-R Int : 144 ms QRS Dur : 074 ms QT Int : 374 ms P-R-T Axes : 026 054 036 degrees QTc Int : 420 ms NORMAL SINUS RHYTHM NORMAL ECG NO PREVIOUS ECGS AVAILABLE Confirmed by James Tsang MD ([id number]) on 07/27/2020 10:36:20 AM Referred By: Confirmed By:James Tsang MD
--- NOTE | 2020-07-27 10:40 | CONSULT ---
<Finn Fitch P - Last Filed: 07/27/20 10:49> - Consultation REQUESTING PROVIDER: Hammad Franklyn -- General Surgery CONSULT REQUEST: We have been asked to surgically evaluate this patient for RUQ pain OBGYN: MD Aleida Hospitalist: Makenzie Acuña MD Limitations: [place] speaking only. 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 PMHx includes x2 (had gestational DM with both pregnancies). Presents to [facility] ED w/ severe RUQ abd pain that started yesterday. First noticed it after eating a steak (a lot of fat marbeling). Pain described as "crampy" and unrelenting. Pain was 10/10. Finally came to ER. States she's never experience this before. While in th ER, she admits to n/v x1 (nbnb). [place] be tter after vomiting. Pain subsided with ivf and pain medication. While in the ED she had an ABD U/S which identified: 1. single intauterine ~ 14 weeks and 5 days; FHR 146 bpm. Normal appearing Rt Ovary. Left not visualized 2. cholelithiasis x2 in region of GB neck. + sonographic Hernandez's. No intra/extrahepatic bilary duct dilation PMHx: Gestational diabetes previously in both pregnancies PSHx: x2 Home Meds: Denies taking any. Allergies: NKDA ROS: 12 systemm review conducted and considered negative except for what's contained in the HPI. PE: GENERAL: A&). NAD HEAD: Normal with no signs of trauma. EYES: PERRL, sclera anicteric, conjunctiva clear. NECK: Normal ROM, supple without lymphadenopathy, JVD, or masses. LUNGS: Unlabored respirations on room air HEART: RRRR ABD: Soft, nontender, not distended, normoactive bowel sounds, no guarding, no rebound, negative Hernandez's. MUSCULOSKELETAL: No CVA tenderness. UE: 2+ pulses, warm, well-perfused. No cyanosis. Cap refill <2 seconds. No peripheral edema. LE: 2+ pulses, warm, well-perfused. No calf tenderness. No peripheral edema. PSYCH: Cooperative. Good eye contact. Appropriate mood and affect. SKIN: Warm, dry, normal turgor, no rashes or lesions noted. Last Vital Signs Temp Pulse Resp BP Pulse Ox 98.2 F 71 18 107/58 L 100 07/27/20 05:49 07/27/20 05:49 07/27/20 05:49 07/27/20 05:49 07/27/20 05:49 CBC, BMP 07/27/20 02:48 07/27/20 02:48 Hepatic Panel Total Bilirubin 0.2 mg/dL (0.2-1) 07/27/20 02:48 AST 13 U/L (15-37) L 07/27/20 02:48 ALT 26 U/L (13-61) 07/27/20 02:48 Alkaline Phosphatase 81 U/L (45-117) 07/27/20 02:48 Albumin 3.6 g/dl (3.4-5.0) 07/27/20 02:48 Urine Test Results Urine Color Yellow 07/27/20 02:00 Urine Appearance Cloudy 07/27/20 02:00 Urine pH 6.5 (5.0-8.0) 07/27/20 02:00 Ur Specific [place] 1.008 (1.010-1.035) L 07/27/20 02:00 Urine Protein Negative (NEGATIVE) 07/27/20 02:00 Urine Glucose (UA) Negative (NEGATIVE) 07/27/20 02:00 Urine Ketones Negative (NEGATIVE) 07/27/20 02:00 Urine Blood Negative (NEGATIVE) 07/27/20 02:00 Urine Nitrite Negative (NEGATIVE) 07/27/20 02:00 Urine Bilirubin Negative (NEGATIVE) 07/27/20 02:00 Ur Leukocyte Esterase 2+ (NEGATIVE) H 07/27/20 02:00 INR, PTT INR 0.94 (0.83-1.09) 07/27/20 02:48 Blood Type Blood Type O POSITIVE 07/27/20 02:48 A/P: 35 yo female , currently 14 weeks and 5 days intrauterine . Presents with RUQ abd pain. Mild Leukocytosis. ABD U/S confirms cholelithiasis (stones x2 in region of GB neck). Pain most likely caused by transient blockage. Because patient is , the risks right now outweigh the benefits of doing procedure. Currently she is asymptomatic. Afebrile. Non-toxic appearing. -[place] diet. Avoid food high in fat for remainder of your -f/u with Dr. Estes after you deliver to begin process for elective cholecystectomy -May begin clear liquid diet and advance as tolerated. -No surgical intervention -Can be dc'd home from surgery standpoint Above plan discussed with my attending and agrees. On behalf of Dr. Estes, thank you for the opportunity to participate in your patient's care. Problem List - Problems (1) Cholelithiasis Code(s): K80.20 - CALCULUS OF GALLBLADDER W/O CHOLECYSTITIS W/O OBSTRUCTION (2) Leukocytosis Code(s): D72.829 - ELEVATED WHITE BLOOD CELL COUNT, UNSPECIFIED (3) on abdominal palpation in first trimester Code(s): Z34.91 - ENCNTR FOR SUPRVSN OF NORMAL PREG, UNSP, FIRST TRIMESTER (4) Gestational diabetes Code(s): O24.419 - GESTATIONAL DIABETES MELLITUS IN , UNSP CONTROL Visit type - Case Type Case Type: ED Admission - Emergency Emergency Visit: Yes ED Registration Date: 07/27/20 Care time: The patient presented to the Emergency Department on the above date and was hospitalized for further evaluation of their emergent condition. - New patient This patient is new to me today: Yes Date on this admission: 07/27/20 <Hammad Estes - Last Filed: 07/30/20 10:44> - Consultation Attending Surgeon: I personally saw and examined the patient. My examination reveals a patient with symptomatic gallbladder disease. I discussed the case with the surgical PA and agree with their findings and plan of care with any exceptions as noted. ~ Hammad Estes MD, FACS
--- NOTE | 2020-07-27 13:28 | PN ---
Progress Note (short form) - Note Progress Note: ID CONSULT DICTATED BILIARY COLIC UTI 15 WK IUP OBTAIN BLOOD C/S EMPIRIC CEFTIN FOR UTI SURGICAL FOLLOW UP
--- NOTE | 2020-07-27 13:51 | CONS ---
DATE OF CONSULTATION: 07/27/2020 The patient is a 35-year-old female, 15 weeks , who was evaluated for possible cholecystitis. She presented to the emergency room after developing postprandial right upper quadrant abdominal pain. It was described as sharp and localized to the right upper quadrant. She denied any associated fever or chills, nausea, vomiting or diarrhea. In the emergency room the patient had an episode of vomiting, nonbilious, non-bloody. A sonogram was performed and showed at least 2 intraluminal gallstones with no evidence of thickened gallbladder wall, pericholecystic fluid or dilated ducts. At the present time she is awake and alert. She is comfortable and she denies any pain. She denies any recurrent vomiting. She has been afebrile with an elevated white blood cell count. She was also noted to have pyuria on workup as well as mild leukocytosis. PAST MEDICAL HISTORY: As above. ALLERGIES: No known allergies. LABORATORY DATA: White count 12.1, hematocrit 37.6, platelet count 247. Creatinine 0.5. Liver enzymes normal, lipase normal. Urinalysis: 189 white cells. Urine culture is pending. PHYSICAL EXAMINATION: General: She is awake and alert, supine in bed, in no acute distress. She appears comfortable, nontoxic. Denies pain. Vital Signs: Temperature 98, blood pressure 113/78, pulse 68 and regular, respirations 16 per minute. HEENT: Sclerae anicteric. Heart: Sounds S1, S2. Lungs: Clear. Abdomen: Soft, obese. There is no right upper quadrant tenderness to deep palpation. Negative Hernandez sign. No suprapubic tenderness. Extremities: Negative for edema. Negative Thelma sign. IMPRESSION: 1. Biliary colic. 2. Urinary tract infection. 3. Fifteen-week intrauterine . We will obtain blood cultures in light of mild leukocytosis. At the present time patient is pain free and has no tenderness on exam. No sonographic evidence of acute cholecystitis. Suspect symptoms secondary to biliary colic. No evidence of systemic infection. Will obtain blood cultures and empirically treat with Ceftin for urinary tract infection pending culture. Surgical followup as an outpatient if cleared for discharge by Surgery. Thank you for the kind referral. SCOT TOM M.D. [id number]
--- NOTE | 2020-07-27 13:53 | PN ---
Teaching Attending Note Name of Resident: France Arias ATTENDING PHYSICIAN STATEMENT I saw and evaluated the patient. I reviewed the resident's note and discussed the case with the resident. I agree with the resident's findings and plan as documented. SUBJECTIVE: pt seen and examined, not in pain OBJECTIVE: Last Vital Signs Temp Pulse Resp BP Pulse Ox 98 F 68 16 113/78 100 07/27/20 10:35 07/27/20 10:35 07/27/20 10:35 07/27/20 10:35 07/27/20 10:35 GENERAL: Awake, alert, and fully oriented, in no acute distress. HEAD: Normal with no signs of trauma. EYES: Pupils equal, round and reactive to light, sclera anicteric, conjunctiva clear. LUNGS: Breath sounds equal, clear to auscultation bilaterally. No wheezes, and no crackles. No accessory muscle use. HEART: Regular rate and rhythm, normal S1 and S2 ABDOMEN: Soft, nontender, not distended MUSCULOSKELETAL: Normal range of motion at all joints. No bony deformities or tenderness. No CVA tenderness. UPPER EXTREMITIES: 2+ pulses, warm, well-perfused. No cyanosis. No clubbing. No peripheral edema. LOWER EXTREMITIES: 2+ pulses, warm, well-perfused. No calf tenderness. No peripheral edema. NEUROLOGICAL: Cranial nerves II-XII intact. Normal speech. CBCD WBC 12.1 K/mm3 (4.0-10.0) H 07/27/20 02:48 RBC 4.54 M/mm3 (3.60-5.2) 07/27/20 02:48 Hgb 12.8 GM/dL (10.7-15.3) 07/27/20 02:48 Hct 37.6 % (32.4-45.2) 07/27/20 02:48 MCV 82.8 fl (80-96) 07/27/20 02:48 MCHC 34.1 g/dl (32.0-36.0) 07/27/20 02:48 RDW 14.3 % (11.6-15.6) D 07/27/20 02:48 Plt Count 247 K/MM3 (134-434) 07/27/20 02:48 MPV 8.4 fl (7.5-11.1) 07/27/20 02:48 CMP Sodium 137 mmol/L (136-145) 07/27/20 02:48 Potassium 4.3 mmol/L (3.5-5.1) 07/27/20 02:48 Chloride 106 mmol/L (98-107) 07/27/20 02:48 Carbon Dioxide 23 mmol/L (21-32) 07/27/20 02:48 Anion Gap 8 MMOL/L (8-16) 07/27/20 02:48 BUN 6.6 mg/dL (7-18) L 07/27/20 02:48 Creatinine 0.5 mg/dL (0.55-1.3) L 07/27/20 02:48 Calcium 9.3 mg/dL (8.5-10.1) 07/27/20 02:48 Total Bilirubin 0.2 mg/dL (0.2-1) 07/27/20 02:48 AST 13 U/L (15-37) L 07/27/20 02:48 ALT 26 U/L (13-61) 07/27/20 02:48 Alkaline Phosphatase 81 U/L (45-117) 07/27/20 02:48 Total Protein 7.4 g/dl (6.4-8.2) 07/27/20 02:48 Albumin 3.6 g/dl (3.4-5.0) 07/27/20 02:48 Active Medications Cefuroxime Axetil (Ceftin -) 500 mg PO BID [facility] Insulin Aspart (Novolog Vial Sliding Scale -) 1 vial SQ ACHS [facility]; Protocol Last Admin: 07/27/20 11:53 Dose: Not Given Documented by: ASSESSMENT AND PLAN: 35 year old female patient with past medical history that includes 2 Normal Spontaneous Vaginal Deliveries, who presented to the emergency room with severe right upper quadrant abdominal pain since 1 pm yesterday. Calculous Cholecystitis WBC count 12.1 U/S showed 2 stones measuring 1.63cm and 1.37cm with positive sonographic Hernandez sign, fatty changes Pain and nausea resolved surgery evaluated, no plans for OR now, outpatient follow up ID changed IV abx for PO Discharge for outpatient follow up with surgery and OBGYN Gestational Diabetes DVT PPx
--- NOTE | 2020-07-27 13:54 | PN ---
Physical Exam: SUBJECTIVE: Patient seen and examined. States abdominal pain resolved after episode of vomiting in the ER. Denies any SOB, fever, chills, nausea, vomiting, diarrhea/constipation. OBJECTIVE: Vital Signs Period Temp Pulse Resp BP Sys/Olson Pulse Ox Last 24 Hr 98 F-98.8 F 68-83 16-18 107-118/58-78 99-100 GENERAL: The patient is awake, alert, and fully oriented, in no acute distress. HEAD: Normal with no signs of trauma. EYES: PERRL, extraocular movements intact, sclera anicteric, conjunctiva clear. No ptosis. ENT: Ears normal, nares patent, oropharynx clear without exudates, moist mucous membranes. NECK: Trachea midline, full range of motion, supple. LUNGS: Breath sounds equal, clear to auscultation bilaterally, no wheezes, no crackles, no accessory muscle use. HEART: Regular rate and rhythm, S1, S2 without murmur, rub or gallop. ABDOMEN: Soft, nontender, nondistended, normoactive bowel sounds, no guarding, no rebound, no hepatosplenomegaly, no masses. EXTREMITIES: 2+ pulses, warm, well-perfused, no edema. NEUROLOGICAL: Cranial nerves II through XII grossly intact. Normal speech, gait not observed. PSYCH: Normal mood, normal affect. SKIN: Warm, dry, normal turgor, no rashes or lesions noted Laboratory Results - last 24 hr 07/27/20 07/27/20 07/27/20 02:00 02:48 02:48 WBC 12.1 H RBC 4.54 Hgb 12.8 Hct 37.6 MCV 82.8 MCH 28.2 D MCHC 34.1 RDW 14.3 D Plt Count 247 MPV 8.4 Absolute Neuts (auto) 8.5 H Neutrophils % 70.5 Lymphocytes % 20.8 Monocytes % 5.9 Eosinophils % 1.9 Basophils % 0.9 Nucleated RBC % 0 PT with INR 11.10 INR 0.94 PTT (Actin FS) 29.7 Sodium Potassium Chloride Carbon Dioxide Anion Gap BUN Creatinine Est GFR (CKD-EPI)AfAm Est GFR (CKD-EPI)NonAf POC Glucometer Random Glucose Calcium Total Bilirubin AST ALT Alkaline Phosphatase Total Protein Albumin Lipase Urine Color Yellow Urine Appearance Cloudy Urine pH 6.5 Ur Specific [place] 1.008 L Urine Protein Negative Urine Glucose (UA) Negative Urine Ketones Negative Urine Blood Negative Urine Nitrite Negative Urine Bilirubin Negative Urine Urobilinogen 0.2 Ur Leukocyte Esterase 2+ H Urine WBC (Auto) 189 Urine RBC (Auto) 38 Urine Casts (Auto) 0 U Epithel Cells (Auto) 29 Urine Bacteria (Auto) 2381 Blood Type Antibody Screen 07/27/20 07/27/20 07/27/20 02:48 02:48 07:55 WBC RBC Hgb Hct MCV MCH MCHC RDW Plt Count MPV Absolute Neuts (auto) Neutrophils % Lymphocytes % Monocytes % Eosinophils % Basophils % Nucleated RBC % PT with INR INR PTT (Actin FS) Sodium 137 Potassium 4.3 Chloride 106 Carbon Dioxide 23 Anion Gap 8 BUN 6.6 L Creatinine 0.5 L Est GFR (CKD-EPI)AfAm 143.30 Est GFR (CKD-EPI)NonAf 123.64 POC Glucometer 111 Random Glucose 151 H Calcium 9.3 Total Bilirubin 0.2 AST 13 L ALT 26 Alkaline Phosphatase 81 Total Protein 7.4 Albumin 3.6 Lipase 103 Urine Color Urine Appearance Urine pH Ur Specific [place] Urine Protein Urine Glucose (UA) Urine Ketones Urine Blood Urine Nitrite Urine Bilirubin Urine Urobilinogen Ur Leukocyte Esterase Urine WBC (Auto) Urine RBC (Auto) Urine Casts (Auto) U Epithel Cells (Auto) Urine Bacteria (Auto) Blood Type O POSITIVE Antibody Screen Negative 07/27/20 11:52 WBC RBC Hgb Hct MCV MCH MCHC RDW Plt Count MPV Absolute Neuts (auto) Neutrophils % Lymphocytes % Monocytes % Eosinophils % Basophils % Nucleated RBC % PT with INR INR PTT (Actin FS) Sodium Potassium Chloride Carbon Dioxide Anion Gap BUN Creatinine Est GFR (CKD-EPI)AfAm Est GFR (CKD-EPI)NonAf POC Glucometer 93 Random Glucose Calcium Total Bilirubin AST ALT Alkaline Phosphatase Total Protein Albumin Lipase Urine Color Urine Appearance Urine pH Ur Specific [place] Urine Protein Urine Glucose (UA) Urine Ketones Urine Blood Urine Nitrite Urine Bilirubin Urine Urobilinogen Ur Leukocyte Esterase Urine WBC (Auto) Urine RBC (Auto) Urine Casts (Auto) U Epithel Cells (Auto) Urine Bacteria (Auto) Blood Type Antibody Screen Active Medications Generic Name Dose Route Start Last Admin Trade Name Freq PRN Reason Stop Dose Admin Cefuroxime Axetil 500 mg 07/27/20 13:30 Ceftin - PO BID MOR Insulin Aspart 1 vial 07/27/20 07:00 07/27/20 11:53 Novolog Vial Sliding Scale - SQ Not Given ACHS MOR Protocol ASSESSMENT/PLAN: Pt is #Cholecystitis # - -Pelvic ultrasound shows intrauterine estimated 14 weeks 5 days #Hx of GDM -2 prior pregnancies GDM -Pt FEN: PPx: Heparin 5000u TID Dispo: Admitted to med-surg. Treat with Zosyn for 1 day and d/c home. ATTENDING PHYSICIAN STATEMENT I saw and evaluated the patient. I reviewed the resident's note and discussed the case with the resident. I agree with the resident's findings and plan as documented. SUBJECTIVE: OBJECTIVE: ASSESSMENT AND PLAN:
[2020-07-27] MEDS ORDERED: CEFUROXIME AXETIL 500 MG TABLET PO SCH (14:15)
[2020-07-27 15:47] VITALS: BP 121/66; PULSE 79; TEMP 98.3
--- NOTE | 2020-07-27 15:51 | DS ---
Physical Exam: SUBJECTIVE: Patient seen and examined. Much improved abdominal pain after vomiting. OBJECTIVE: Vital Signs Period Temp Pulse Resp BP Sys/Olson Pulse Ox Last 24 Hr 98 F-98.8 F 68-88 16-18 107-123/58-78 98-100 PHYSICAL EXAM GENERAL: The patient is awake, alert, and fully oriented, in no acute distress. HEAD: Normal with no signs of trauma. EYES: PERRL, extraocular movements intact, sclera anicteric, conjunctiva clear. ENT: Ears normal, nares patent, oropharynx clear without exudates, moist mucous membranes. NECK: Trachea midline, full range of motion, supple. LUNGS: Breath sounds equal, clear to auscultation bilaterally, no wheezes, no crackles, no accessory muscle use. HEART: Regular rate and rhythm, S1, S2 without murmur, rub or gallop. ABDOMEN: Soft, nontender, nondistended, normoactive bowel sounds, no guarding, no rebound, no hepatosplenomegaly, no masses EXTREMITIES: 2+ pulses, warm, well-perfused, no edema. NEUROLOGICAL: Cranial nerves II through XII grossly intact. Normal speech, gait not observed. PSYCH: Normal mood, normal affect. SKIN: Warm, dry, normal turgor, no rashes or lesions noted. LABS Laboratory Results - last 24 hr 07/27/20 07/27/20 07/27/20 02:00 02:48 02:48 WBC 12.1 H RBC 4.54 Hgb 12.8 Hct 37.6 MCV 82.8 MCH 28.2 D MCHC 34.1 RDW 14.3 D Plt Count 247 MPV 8.4 Absolute Neuts (auto) 8.5 H Neutrophils % 70.5 Lymphocytes % 20.8 Monocytes % 5.9 Eosinophils % 1.9 Basophils % 0.9 Nucleated RBC % 0 PT with INR 11.10 INR 0.94 PTT (Actin FS) 29.7 Sodium Potassium Chloride Carbon Dioxide Anion Gap BUN Creatinine Est GFR (CKD-EPI)AfAm Est GFR (CKD-EPI)NonAf POC Glucometer Random Glucose Calcium Total Bilirubin AST ALT Alkaline Phosphatase Total Protein Albumin Lipase Urine Color Yellow Urine Appearance Cloudy Urine pH 6.5 Ur Specific [place] 1.008 L Urine Protein Negative Urine Glucose (UA) Negative Urine Ketones Negative Urine Blood Negative Urine Nitrite Negative Urine Bilirubin Negative Urine Urobilinogen 0.2 Ur Leukocyte Esterase 2+ H Urine WBC (Auto) 189 Urine RBC (Auto) 38 Urine Casts (Auto) 0 U Epithel Cells (Auto) 29 Urine Bacteria (Auto) 2381 Blood Type Antibody Screen 07/27/20 07/27/20 07/27/20 02:48 02:48 07:55 WBC RBC Hgb Hct MCV MCH MCHC RDW Plt Count MPV Absolute Neuts (auto) Neutrophils % Lymphocytes % Monocytes % Eosinophils % Basophils % Nucleated RBC % PT with INR INR PTT (Actin FS) Sodium 137 Potassium 4.3 Chloride 106 Carbon Dioxide 23 Anion Gap 8 BUN 6.6 L Creatinine 0.5 L Est GFR (CKD-EPI)AfAm 143.30 Est GFR (CKD-EPI)NonAf 123.64 POC Glucometer 111 Random Glucose 151 H Calcium 9.3 Total Bilirubin 0.2 AST 13 L ALT 26 Alkaline Phosphatase 81 Total Protein 7.4 Albumin 3.6 Lipase 103 Urine Color Urine Appearance Urine pH Ur Specific [place] Urine Protein Urine Glucose (UA) Urine Ketones Urine Blood Urine Nitrite Urine Bilirubin Urine Urobilinogen Ur Leukocyte Esterase Urine WBC (Auto) Urine RBC (Auto) Urine Casts (Auto) U Epithel Cells (Auto) Urine Bacteria (Auto) Blood Type O POSITIVE Antibody Screen Negative 07/27/20 11:52 WBC RBC Hgb Hct MCV MCH MCHC RDW Plt Count MPV Absolute Neuts (auto) Neutrophils % Lymphocytes % Monocytes % Eosinophils % Basophils % Nucleated RBC % PT with INR INR PTT (Actin FS) Sodium Potassium Chloride Carbon Dioxide Anion Gap BUN Creatinine Est GFR (CKD-EPI)AfAm Est GFR (CKD-EPI)NonAf POC Glucometer 93 Random Glucose Calcium Total Bilirubin AST ALT Alkaline Phosphatase Total Protein Albumin Lipase Urine Color Urine Appearance Urine pH Ur Specific [place] Urine Protein Urine Glucose (UA) Urine Ketones Urine Blood Urine Nitrite Urine Bilirubin Urine Urobilinogen Ur Leukocyte Esterase Urine WBC (Auto) Urine RBC (Auto) Urine Casts (Auto) U Epithel Cells (Auto) Urine Bacteria (Auto) Blood Type Antibody Screen HOSPITAL COURSE: Date of Admission:07/27/20 Pt presented , 15 weeks , presented to the ED with RUQ abdominal pain that resolved after episode of vomiting. U/S pelvis showed viable IUP 14w, 5 d. RUQ US shows calculous cholecystitis. Treated with Zosyn x1 in hospital, discharged on Ceftin x 7 days 500mgBID. Pt has hx of gestational DM on previous pregnancies, elevated BG on admission on SSI, not receiving any units. Date of Discharge: 07/27/20 Minutes to complete discharge: 36 Discharge Summary Problems reviewed: Yes Reason For Visit: ABD PAIN AFFECTING Current Active Problems Abdominal pain affecting (Acute) Cholecystitis (Acute) Cholelithiasis (Acute) Gestational diabetes (Acute) Leukocytosis (Acute) on abdominal palpation in first trimester (Acute) Condition: Fair - Instructions Diet, Activity, Other Instructions: You came to the hospital for abdominal pain and vomiting. You had an ultrasound which showed stones in your gallbladder and some fat on your liver. You have elevated white blood cells in your blood, indicating a possible infection and were given an antibiotic. Your pelvic ultrasound showed you are currently 15 weeks . Please take your Cefuroxime 500mg twice a day for 7 days. Please continue your vitamins as indicated. Please follow up with your primary care physician in 1 week. Please follow up with your infectious disease doctor, Dr. Watkins, in 1 week. Please follow up with your surgeon, Dr. Estes, in 1 week. Please follow up with your [facility] doctor, Dr. Delarosa, in 1 week. If you have any new, worsening or changing symptoms please return to the ED or call 911. Referrals: Darren Watkins MD [Staff Physician] - Hammad Estes MD [Staff Physician] - Lokesh Delarosa MD [Staff Physician] - Disposition: HOME - Home Medications Comprehensive Discharge Medication List: Ambulatory Orders Cefuroxime Axetil [Ceftin -] 500 mg PO BID #14 tablet 07/27/20 This patient is new to me today: No Emergency Visit: Yes ED Registration Date: 07/27/20 Care time: The patient presented to the Emergency Department on the above date and was hospitalized for further evaluation of their emergent condition. Critical Care patient: No - Discharge Referral Referred to [facility] Med [facility].C[facility] No ATTENDING PHYSICIAN STATEMENT I saw and evaluated the patient. I reviewed the resident's note and discussed the case with the resident. I agree with the resident's findings and plan as documented. SUBJECTIVE: OBJECTIVE: ASSESSMENT AND PLAN:
[2020-07-27] MEDS ORDERED: PIPERACILLIN/TAZOB 3.375 GM 3.375 GM in DEXTROSE 5%-WATER - 50 ML IVPB SCH (18:00)
== END 2020-07-27 15:55 | disposition home or self-care (01) | DRG 566 ==
LOC: JER 00:51 → JERBED 03:14
PROVIDERS: ADMIT Internal Medicine; ATTEND Student in an Organized Health Care Education/Training Program
DX: O99.612 Diseases of the digestive system complicating pregnancy, second trimester (principal); O24.419 Gestational diabetes mellitus in pregnancy, unspecified control; K80.40 Calculus of bile duct with cholecystitis, unspecified, without obstruction; O23.42 Unspecified infection of urinary tract in pregnancy, second trimester; Z3A.15 15 weeks gestation of pregnancy; O26.612 Liver and biliary tract disorders in pregnancy, second trimester; D72.829 Elevated white blood cell count, unspecified; K76.0 Fatty (change of) liver, not elsewhere classified; O26.892 Other specified pregnancy related conditions, second trimester
CPT/HCPCS: 36415; 76705-TC; 76801-TC; 80053; 81003; 82962; 83690; 85025; 85610; 85730; 86850; 86900; 86901; 87086; 93005; 93010; 99285-25; J0131; U0003

== ENCOUNTER 2021-01-06 14:35 | Inpatient (IN) | payer OTHER ==
[2021-01-06] MEDS ORDERED: ELECTROLYTE-148 SOLN 500 ML IV ONE (15:05)
[2021-01-06] MEDS ORDERED: ELECTROLYTE-148 SOLN 1,000 ML IV SCH ×2 (15:35→16:30)
[2021-01-06 15:43] LABS: BASO % 0.6 % (0-2.0); EOS % 0.8 % (0-4.5); HEMATOCRIT 42.2 % (32.4-45.2); HEMOGLOBIN 14.6 GM/dL (10.7-15.3); LYMPH % 17.6 % (8-40); MCH 28.5 pg (25.7-33.7); MCHC 34.5 g/dl (32.0-36.0); MEAN CELL VOLUME 82.6 fl (80-96); MEAN PLT VOLUME 10.6 fl (7.5-11.1); MONO % 4.4 % (3.8-10.2); NEUT % 76.6 % (42.8-82.8); PLATELET COUNT 194 K/MM3 (134-434); RBC 5.11 M/mm3 (3.60-5.2); RDW 15.8 % (11.6-15.6); WHITE BLOOD COUNT 11.6 K/mm3 (4.0-10.0)
[2021-01-06 15:45] LABS: INR 0.93 (0.83-1.09); PROTHROMBIN TIME (PATIENT) 11.3 SEC (9.7-13.0)
[2021-01-06] MEDS ORDERED: CITRIC ACID/SODIUM CITRATE 30 ML UNIT-DOSE CUP PO ONE ×2 (15:45→16:20)
[2021-01-06 15:47] LABS: ACTIVATED PTT 29.5 SECONDS (25.2-36.5)
[2021-01-06 16:02] VITALS: BMI 34.8
[2021-01-06 16:04] LABS: POTASSIUM 4.2 mmol/L (3.5-5.1)
[2021-01-06 16:06] LABS: BLOOD UREA NITROGEN 8.6 mg/dL (7-18)
[2021-01-06 16:09] LABS: CREATININE 0.7 mg/dL (0.55-1.3)
[2021-01-06] MEDS ORDERED: ONDANSETRON 4 MG/2 ML VIAL IVPUSH PRN (17:22)
[2021-01-06] MEDS ORDERED: morphine SULFATE/PF 0.5 MG/ML (2cc Syringe - QUVA) EP ONE (17:22)
[2021-01-06] MEDS ORDERED: morphine SULFATE/PF 0.5 MG/ML (2cc Syringe - QUVA) ONE (17:26)
[2021-01-06] MEDS ORDERED: OXYTOCIN 20 UNITS in 0.9% NS 40 UNIT/2,000 ML INFUS.BAG IV ONE (17:32)
[2021-01-06] MEDS ORDERED: ceFAZolin SODIUM 1 GM VIAL ONE (17:51)
[2021-01-06] MEDS ORDERED: KETOROLAC TROMETHAMINE 30 MG/1 ML VIAL ONE (18:12)
[2021-01-06] MEDS ORDERED: ONDANSETRON 4 MG/2 ML VIAL ONE (18:12)
[2021-01-06] MEDS ORDERED: OXYTOCIN 10 UNITS/ML VIAL ONE (18:52)
[2021-01-06] MEDS ORDERED: oxyCODONE HCL 5 MG TABLET PO PRN ×2 (18:56)
[2021-01-06] MEDS ORDERED: IBUPROFEN 800 MG/8 ML IJ IVPB PRN (18:56)
[2021-01-06] MEDS ORDERED: diphenhydrAMINE HCL 25 MG CAPSULE (FP) PO PRN (18:56)
[2021-01-06] MEDS ORDERED: BENZOCAINE 28 GM HEMORRHOIDAL OINTMENT PR PRN (18:56)
[2021-01-06] MEDS ORDERED: METHYLERGONOVINE MALEATE 0.2 MG/1 ML AMP IM ONE (18:56)
[2021-01-06] MEDS ORDERED: METHYLERGONOVINE MALEATE 0.2 MG/1 ML AMP IM PRN (18:56)
[2021-01-06] MEDS ORDERED: WITCH HAZEL 50% (TUCKS) 40 PAD/JAR PAD TP PRN (18:56)
[2021-01-06] MEDS ORDERED: BENZOCAINE 20% 57 GM BOTTLE TP PRN (18:56)
[2021-01-06 19:00] LABS: CORD BASE EXCESS -2.3 mmol/L (0-2); CORD BASE EXCESS 0.6 mmol/L (0-2); CORD HCO3 23.3 mmHg (20-29); CORD HCO3 28.9 mmHg (20-29); CORD PCO2 43.1 mmHg (30-78); CORD PCO2 59.6 mmHg (30-78); CORD pH 7.304 (7.14-7.44); CORD pH 7.351 (7.14-7.44)
[2021-01-06] MEDS ORDERED: DEXTROSE 5%-LACTATED RINGERS 1,000 ML IV SCH (19:00)
[2021-01-06] MEDS ORDERED: OXYTOCIN 20 UNITS in 0.9% NS 20 UNIT/1,000 ML INFUS.BAG IV SCH (19:00)
[2021-01-07] MEDS: CEFAZOLIN 1 GM/D5W 1 GM/50 ML BAG IVPB SCH ×2 (01:40→11:14)
[2021-01-07] MEDS: ENOXAPARIN NA (PORCINE) 40 MG/0.4 ML DISP.SYRIN SQ SCH (11:15)
[2021-01-07] MEDS: SIMETHICONE 80 MG TAB.CHEW (FP) PO PRN ×3 (11:16→21:25)
[2021-01-07] MEDS: ACETAMINOPHEN 325 MG TABLET (FP) PO PRN ×2 (16:20→21:24)
[2021-01-07] MEDS: IBUPROFEN 600 MG TABLET (FP) PO PRN ×2 (16:21→21:24)
[2021-01-07] MEDS ORDERED: BISACODYL 10 MG SUPP.RECT PR PRN (18:56)
[2021-01-08] MEDS: ACETAMINOPHEN 325 MG TABLET (FP) PO PRN ×4 (02:16→21:50)
[2021-01-08] MEDS: IBUPROFEN 600 MG TABLET (FP) PO PRN ×3 (02:17→21:51)
[2021-01-08] MEDS: SIMETHICONE 80 MG TAB.CHEW (FP) PO PRN (02:18)
[2021-01-08] MEDS: ENOXAPARIN NA (PORCINE) 40 MG/0.4 ML DISP.SYRIN SQ SCH (09:47)
[2021-01-08] MEDS ORDERED: DIPHTH,PERTUSS(ACELL),TET 0.5 ML DISP.SYRIN IM ONE (10:00)
[2021-01-08] MEDS ORDERED: FLU VACCINE (FLULAVAL) PF 60 MCG/0.5 ML SYRINGE 2020-2021 IM ONE (10:00)
[2021-01-08] MEDS ORDERED: SENNOSIDES/DOCUSATE COMBO (SENNA PLUS) TABLET (UD) PO PRN (22:00)
[2021-01-09] MEDS: IBUPROFEN 600 MG TABLET (FP) PO PRN (06:38)
[2021-01-09] MEDS: ACETAMINOPHEN 325 MG TABLET (FP) PO PRN (06:39)
[2021-01-09] MEDS: ENOXAPARIN NA (PORCINE) 40 MG/0.4 ML DISP.SYRIN SQ SCH (09:57)
[2021-01-09 10:53] VITALS: BP 123/72; PULSE 95; TEMP 98.3
[2021-01-09 11:46] LABS: BASO % 0.5 % (0-2.0); HEMATOCRIT 36.3 % (32.4-45.2); HEMOGLOBIN 12.1 GM/dL (10.7-15.3); LYMPH % 9.8 % (8-40); MCH 27.9 pg (25.7-33.7); MCHC 33.2 g/dl (32.0-36.0); MEAN CELL VOLUME 83.9 fl (80-96); MEAN PLT VOLUME 9.3 fl (7.5-11.1); MONO % 3.7 % (3.8-10.2); PLATELET COUNT 251 K/MM3 (134-434); RBC 4.32 M/mm3 (3.60-5.2); RDW 15.7 % (11.6-15.6); WHITE BLOOD COUNT 13.3 K/mm3 (4.0-10.0)
== END 2021-01-09 11:30 | disposition home or self-care (01) | DRG 540 ==
LOC: JLDR 14:35 → J3W 21:13
PROVIDERS: ADMIT Obstetrics & Gynecology; ATTEND Obstetrics & Gynecology
PROC: 10D00Z1 Extraction of Products of Conception, Low, Open Approach (ICD-10-PCS; principal; 2021-01-06)
PROC: 0UT70ZZ Resection of Bilateral Fallopian Tubes, Open Approach (ICD-10-PCS; 2021-01-06)
DX: O32.1XX0 Maternal care for breech presentation, not applicable or unspecified (principal); O24.420 Gestational diabetes mellitus in childbirth, diet controlled; O99.214 Obesity complicating childbirth; E66.9 Obesity, unspecified; Z30.2 Encounter for sterilization; Z37.0 Single live birth; Z3A.38 38 weeks gestation of pregnancy
CPT/HCPCS: 36415; 36600; 80048; 82803; 82962; 85025; 85610; 85730; 86780; 86850; 86900; 86901; 88302-TC; 88307-TC; 90715; C9803; G0008; Q2036; U0003

== ENCOUNTER 2021-12-07 03:11 | Emergency (ER) | payer OTHER ==
[2021-12-07] MEDS ORDERED: morphine SULFATE 4 MG/ML VIAL ONE (04:02)
[2021-12-07] MEDS ORDERED: LACTATED RINGERS SOLUTION 1000 ML INFUS.BAG IV ONE (04:13)
[2021-12-07 04:42] LABS: EPI CELLS 32 /uL (0-25.1); HYALINE CASTS 1 /uL (0-3.1); PH,URINE 5.5 (5.0-8.0); URINE APPEARANCE CLEAR; URINE BACTERIA 990 /uL (0-1359); URINE BILIRUBIN NEGATIVE (NEGATIVE); URINE COLOR YELLOW; URINE GLUCOSE (UA) NEGATIVE (NEGATIVE); URINE KETONE NEGATIVE (NEGATIVE); URINE LEUK ESTERASE 1+ (NEGATIVE); URINE NITRITE NEGATIVE (NEGATIVE); URINE PROTEIN NEGATIVE (NEGATIVE); URINE RBC 5 /uL (0-23.9); URINE UROBILINOGEN 0.2 mg/dL (0.2-1.0); URINE WBC 70 /uL (0-25.8)
[2021-12-07 04:43] LABS: HCG,QUALITATIVE URINE Negative
[2021-12-07 04:44] LABS: EOS % 2.8 % (0-4.5); HEMATOCRIT 41.9 % (32.4-45.2); HEMOGLOBIN 13.9 GM/dL (10.7-15.3); INR 1.03 (0.83-1.09); LYMPH % 25.2 % (8-40); MCH 26.9 pg (25.7-33.7); MCHC 33.2 g/dl (32.0-36.0); MEAN CELL VOLUME 80.9 fl (80-96); MEAN PLT VOLUME 8.5 fl (7.5-11.1); MONO % 5.3 % (3.8-10.2); NEUT % 65.7 % (42.8-82.8); PLATELET COUNT 310 10^3/uL (134-434); PROTHROMBIN TIME (PATIENT) 11.9 SEC (9.7-13.0); RBC 5.18 M/mm3 (3.60-5.2); RDW 13.9 % (11.6-15.6); WHITE BLOOD COUNT 10.1 K/mm3 (4.0-10.0)
[2021-12-07 04:47] LABS: ACTIVATED PTT 32.7 SECONDS (25.2-36.5)
[2021-12-07 05:02] LABS: ALBUMIN 4.1 g/dl (3.4-5.0); BLOOD UREA NITROGEN 14.1 mg/dL (7-18); CALCIUM 9.4 mg/dL (8.5-10.1)
[2021-12-07 05:05] LABS: CREATININE 0.6 mg/dL (0.55-1.3)
[2021-12-07 05:07] LABS: BILIRUBIN,TOTAL 0.2 mg/dL (0.2-1); TOT PROT 7.4 g/dl (6.4-8.2)
[2021-12-07] MEDS ORDERED: morphine CARPU-JECT 4 MG/1 ML DISP.SYRIN IVPUSH ONE (06:09)
[2021-12-07] MEDS ORDERED: CEFTRIAXONE 1,000 MG in DEXTROSE 5%-WATER - 50 ML IVPB ONE (07:03)
[2021-12-07 07:48] VITALS: TEMP 97.5
[2021-12-07] MEDS ORDERED: cefTRIAXone SODIUM 1 GM VIAL ONE (08:04)
[2021-12-07 12:41] VITALS: BP 113/66; PULSE 73
== END 2021-12-07 13:03 | disposition home or self-care (01) ==
LOC: JER 03:11
PROC: 3E03329 Introduction of Other Anti-infective into Peripheral Vein, Percutaneous Approach (ICD-10-PCS; principal; 2021-12-07)
PROC: 3E033NZ Introduction of Analgesics, Hypnotics, Sedatives into Peripheral Vein, Percutaneous Approach (ICD-10-PCS; 2021-12-07)
DX: R10.9 Unspecified abdominal pain (principal)
CPT/HCPCS: 36415; 74177-TC; 76705-TC; 80053; 81003; 84703; 85025; 85610; 85730; 86850; 86900; 86901; 87086; 99285-25; C9803; Q9967; U0003; U0005

== ENCOUNTER 2021-12-17 04:23 | Emergency (ER) | payer OTHER ==
[2021-12-17 05:04] VITALS: BP 132/77; PULSE 71; TEMP 97.7; BMI 29.4
== END 2021-12-17 06:04 | disposition home or self-care (01) ==
LOC: JER 04:23
DX: K80.80 Other cholelithiasis without obstruction (principal); K80.50 Calculus of bile duct without cholangitis or cholecystitis without obstruction
CPT/HCPCS: 99281-25

== ENCOUNTER 2022-01-13 03:04 | Inpatient (IN) | payer OTHER ==
[2022-01-13 03:27] VITALS: BMI 34.7
[2022-01-13] MEDS ORDERED: ACETAMINOPHEN 1000 MG/100 ML BAG IVPB ONE ×2 (04:22→18:43)
[2022-01-13] MEDS ORDERED: ONDANSETRON 4 MG/2 ML VIAL IVPUSH ONE (04:22)
[2022-01-13] MEDS ORDERED: LACTATED RINGERS SOLUTION 1000 ML INFUS.BAG IV ONE (04:22)
[2022-01-13] MEDS ORDERED: FAMOTIDINE 20 MG/50 ML IVPB 20 MG/50 ML MG IVPB ONE (04:29)
[2022-01-13] MEDS ORDERED: ACETAMINOPHEN INJECTION 100 ML IVPB ONE (04:33)
[2022-01-13] MEDS ORDERED: ONDANSETRON 4 MG/2 ML VIAL ONE (04:33)
[2022-01-13 05:18] LABS: CHLORIDE 105 mmol/L (98-107); SODIUM 131 mmol/L (136-145)
[2022-01-13 05:20] LABS: CALCIUM 8.8 mg/dL (8.5-10.1)
[2022-01-13 05:21] LABS: ALBUMIN 3.7 g/dl (3.4-5.0); BLOOD UREA NITROGEN 16.8 mg/dL (7-18); CO2 25 mmol/L (21-32); GLUCOSE,RANDOM 176 mg/dL (74-106); LIPASE 27 U/L (73-393)
[2022-01-13 05:23] LABS: EPI CELLS 35 /uL (0-25.1); HCG,QUALITATIVE URINE Negative; HYALINE CASTS 1 /uL (0-3.1); URINE APPEARANCE CLEAR; URINE BACTERIA 623 /uL (0-1359); URINE BILIRUBIN NEGATIVE (NEGATIVE); URINE COLOR YELLOW; URINE GLUCOSE (UA) NEGATIVE (NEGATIVE); URINE KETONE TRACE (NEGATIVE); URINE LEUK ESTERASE TRACE (NEGATIVE); URINE NITRITE NEGATIVE (NEGATIVE); URINE PROTEIN NEGATIVE (NEGATIVE); URINE WBC 59 /uL (0-25.8)
[2022-01-13 05:24] LABS: CREATININE 0.8 mg/dL (0.55-1.3); SGOT/AST 89 U/L (15-37)
[2022-01-13 05:26] LABS: BASO % 1.2 % (0-2.0); BILIRUBIN,TOTAL 0.2 mg/dL (0.2-1); EOS % 2.6 % (0-4.5); HEMATOCRIT 40.8 % (32.4-45.2); HEMOGLOBIN 13.3 GM/dL (10.7-15.3); LYMPH % 30.2 % (8-40); MCH 26.6 pg (25.7-33.7); MCHC 32.6 g/dl (32.0-36.0); MEAN CELL VOLUME 81.5 fl (80-96); MEAN PLT VOLUME 9.3 fl (7.5-11.1); MONO % 6.4 % (3.8-10.2); NEUT % 59.6 % (42.8-82.8); PLATELET COUNT 279 10^3/uL (134-434); RDW 13.9 % (11.6-15.6); TOT PROT 7.5 g/dl (6.4-8.2)
[2022-01-13 05:27] LABS: ALK PHOS 118 U/L (45-117)
[2022-01-13 05:44] LABS: ANION GAP 1 MMOL/L (8-16); SGPT/ALT 40 U/L (13-61)
[2022-01-13 06:20] LABS: INR 1.05 (0.83-1.09); PROTHROMBIN TIME (PATIENT) 12.1 SEC (9.7-13.0)
[2022-01-13 07:18] LABS: BLOOD UREA NITROGEN 12.8 mg/dL (7-18); CALCIUM 8.4 mg/dL (8.5-10.1)
[2022-01-13 07:22] LABS: CREATININE 0.6 mg/dL (0.55-1.3)
[2022-01-13 07:39] LABS: URINE RBC 49.6 /uL (0-23.9)
[2022-01-13] MEDS ORDERED: cefOXitin SODIUM 1 GM/10 ML PUSH (RESTRICTED TO ID) IVPUSH ONE (12:15)
[2022-01-13] MEDS ORDERED: CEFOXITIN SODIUM 1 GM in DEXTROSE 5%-WATER - 100 ML IVPB ONE (12:45)
[2022-01-13] MEDS ORDERED: ACETAMINOPHEN 1000 MG/100 ML BAG IVPB PRN ×2 (12:46→18:39)
[2022-01-13] MEDS ORDERED: ONDANSETRON 4 MG/2 ML VIAL IVPUSH PRN ×3 (12:47→18:44)
[2022-01-13] MEDS ORDERED: morphine SULFATE 4 MG/ML VIAL IVPUSH PRN ×2 (12:47→18:44)
[2022-01-13] MEDS ORDERED: LACTATED RINGERS SOLUTION 1,000 ML/1,000 ML INFUS.BAG IV SCH ×2 (13:00→18:44)
[2022-01-13] MEDS ORDERED: BUPIVACAINE HCL/PF 0.5% (5MG/ML) 10 ML VIAL ONE (16:43)
[2022-01-13] MEDS ORDERED: PROPOFOL 20 ML ONE (17:13)
[2022-01-13] MEDS ORDERED: MIDAZOLAM HCL 2 MG/2 ML SINGLE DOSE VIAL ONE (17:13)
[2022-01-13] MEDS ORDERED: SUCCINYLCHOLINE CHLORIDE 200 MG/10 ML SYRINGE ONE (17:13)
[2022-01-13] MEDS ORDERED: NEOSTIGMINE METHYLSULFATE 0.5 MG/ML - 10 ML MDV ONE (17:37)
[2022-01-13] MEDS ORDERED: BUPIVACAINE HCL/PF 0.5% (5MG/ML) 10 ML VIAL IJ ONE (17:40)
[2022-01-13] MEDS ORDERED: ceFAZolin SODIUM 1 GM VIAL ONE ×2 (18:05)
[2022-01-13] MEDS ORDERED: KETOROLAC TROMETHAMINE 30 MG/1 ML VIAL ONE (18:05)
[2022-01-13] MEDS ORDERED: GLYCOPYRROLATE 0.2 MG/1 ML VIAL ONE (18:06)
[2022-01-13] MEDS ORDERED: PROMETHAZINE HCL 25 MG/1 ML VIAL IVPUSH PRN (18:39)
[2022-01-14] MEDS ORDERED: ACETAMINOPHEN 1000 MG/100 ML BAG IVPB PRN (01:00)
[2022-01-14 08:55] LABS: BASO % 0.3 % (0-2.0); EOS % 0.3 % (0-4.5); HEMATOCRIT 36.5 % (32.4-45.2); HEMOGLOBIN 12.4 GM/dL (10.7-15.3); MCH 27.3 pg (25.7-33.7); MCHC 33.9 g/dl (32.0-36.0); MEAN CELL VOLUME 80.5 fl (80-96); MEAN PLT VOLUME 8.7 fl (7.5-11.1); MONO % 3.3 % (3.8-10.2); NEUT % 80.1 % (42.8-82.8); PLATELET COUNT 256 10^3/uL (134-434); RBC 4.53 M/mm3 (3.60-5.2); RDW 13.4 % (11.6-15.6); WHITE BLOOD COUNT 11.5 K/mm3 (4.0-10.0)
[2022-01-14] MEDS ORDERED: cefTRIAXone SODIUM 1 GM VIAL ONE (09:00)
[2022-01-14] MEDS ORDERED: DEXTROSE 5%-WATER - 50 ML IVPB ONE (09:00)
[2022-01-14 09:26] LABS: CALCIUM 8.6 mg/dL (8.5-10.1)
[2022-01-14 09:27] LABS: ALBUMIN 3.3 g/dl (3.4-5.0); BLOOD UREA NITROGEN 10.5 mg/dL (7-18); MAGNESIUM 2.1 mg/dL (1.8-2.4)
[2022-01-14 09:30] LABS: CREATININE 0.6 mg/dL (0.55-1.3)
[2022-01-14 09:31] LABS: TOT PROT 5.9 g/dl (6.4-8.2)
[2022-01-14 09:32] LABS: BILIRUBIN,TOTAL 0.3 mg/dL (0.2-1)
[2022-01-14] MEDS ORDERED: CEFTRIAXONE 1 GM in DEXTROSE 5%-WATER - 50 ML IVPB SCH ×2 (10:00)
[2022-01-14 10:08] VITALS: BP 120/65; PULSE 65; TEMP 98.2
== END 2022-01-14 15:27 | disposition home or self-care (01) | DRG 263 ==
LOC: JER 03:04 → JERBED 12:34 → J8W 20:22
PROVIDERS: ADMIT Internal Medicine; ATTEND Internal Medicine
PROC: 0FT44ZZ Resection of Gallbladder, Percutaneous Endoscopic Approach (ICD-10-PCS; principal; 2022-01-13 14:30)
DX: K80.00 Calculus of gallbladder with acute cholecystitis without obstruction (principal); R74.01 Elevation of levels of liver transaminase levels; R10.11 Right upper quadrant pain; R11.2 Nausea with vomiting, unspecified
CPT/HCPCS: 36415; 76705-TC; 80048; 80053; 81003; 83690; 83735; 84484; 84703; 85025; 85610; 85730; 86850; 86900; 86901; 87086; 87186; 88304-TC; 93005; 93010; 94760; 99285-25; C9803; U0003; U0005

== ENCOUNTER 2024-01-08 21:21 | Emergency (ER) | payer OTHER ==
[2024-01-08] MEDS ORDERED: ASPIRIN 81 MG CHEWABLE TABLETS PO ONE (21:40)
[2024-01-08] MEDS ORDERED: ASPIRIN 81 MG CHEWABLE TABLETS ONE (22:00)
[2024-01-08 22:06] VITALS: TEMP 97.9; BMI 31.7
[2024-01-08 22:07] LABS: HEMATOCRIT 36.4 % (32.4-45.2); HEMOGLOBIN 12.4 G/dL (10.7-15.3); MCH 27.5 pg (25.7-33.7); MCHC 34.2 g/dl (32.0-36.0); MEAN CELL VOLUME 80.5 fl (80-96); MEAN PLT VOLUME 9.1 fl (7.5-11.1); PLATELET COUNT 244.1 10^3/uL (134-434); RBC 4.52 10^6/uL (3.60-5.2); RDW 15.6 % (11.6-15.6)
[2024-01-08] MEDS: ASPIRIN 81 MG CHEWABLE TABLETS PO ONE (22:18)
[2024-01-08 22:22] LABS: ALBUMIN 4.3 g/dl (3.4-5.0); BILIRUBIN,TOTAL 0.4 mg/dl (0.2-1); CALCIUM 9.1 mg/dl (8.5-10.1); CREATININE 0.6 mg/dl (0.6-1.3); POTASSIUM 3.8 mmol/L (3.5-5.1); TOT PROT 6.2 g/dl (6.4-8.2)
[2024-01-08 22:25] LABS: PLATELET ESTIMATE ADEQUATE
[2024-01-09 00:06] VITALS: BP 106/64; PULSE 66
[2024-01-09 00:07] VITALS: RESP 20
== END 2024-01-09 00:15 | disposition home or self-care (01) ==
LOC: FER 21:21
DX: R07.9 Chest pain, unspecified (principal)
CPT/HCPCS: 36415; 80053; 81025; 82550; 84484; 85027; 93005; 99284-25